=== PATIENT | female | born 1945 | race Caucasian/White ===

== ENCOUNTER 2021-08-01 18:31 | Inpatient (IN) | payer OTHER ==
[~2021-08-01] VITALS: Ht 160 cm; Wt 53.5 kg
[2021-08-01] MEDS ORDERED: ONDANSETRON HCL/PF 4 MG/2 ML VIAL ONE (18:52)
[2021-08-01] MEDS ORDERED: ONDANSETRON HCL/PF 4 MG/2 ML VIAL IVP ONE (19:00)
[2021-08-01] MEDS ORDERED: IV NS 0.9% 500 ML BAG IV ONE (19:00)
--- NOTE | 2021-08-01 20:00 | NUR ---
PATIENT BIBRA 839 FROM HOME C/O VOMITING X 2 DAYS AND 4 TIMES TODAY. PATIENT IS A/O X 3, RR EVEN AND UNLABORED, NO SOB NOTED. PATIENT TAKEN TO ER BED 06. PATIENT CONNECTED TO CARDIAC AND POX MONITOR.
[2021-08-01 20:12] LABS: COLOR,URINE YELLOW (YELLOW)
[2021-08-01 20:13] LABS: UGLUCOSE 500 MG/DL mg/dL (NEGATIVE)
[2021-08-01 20:14] LABS: BILIRUBIN,URINE NEGATIVE (NEGATIVE); LEUKOCYTE ESTERASE ,URINE LARGE (NEGATIVE); NITRITE, URINE NEGATIVE (NEGATIVE); UROBILINOGEN,URINE 0.2 EU/dL (0.2)
[2021-08-01 20:15] LABS: PROTEIN,URINE 3+ mg/dl (NEGATIVE)
[2021-08-01 20:24] LABS: BACTERIA,URINE 4+ /HPF (None Seen); RBC,URINE TOO NUMEROUS TO COUN /HPF (0-2); SQUAMOUS EPITHELIAL CELL,UR 0-2 /HPF (None Seen); WBC,URINE TOO NUMEROUS TO COUN /HPF (0-3)
[2021-08-01 20:25] LABS: YEAST,URINE Few /HPF (None Seen)
[2021-08-01 20:50] LABS: BASOPHILS % (AUTO) 0.1 % (0.0-2.0); HEMATOCRIT 31 % (33-45); HEMOGLOBIN 10.2 g/dL (11.5-14.8); LYMPHOCYTES % (AUTO) 8.1 % (20.0-44.0); MEAN CORPUSCULAR HGB CONC 33 g/dl (31.0-36.0); MEAN CORPUSCULAR VOLUME 91 fL (82-100); MONOCYTES # (AUTO) 0.7 K/uL (0.1-1.30); MONOCYTES % (AUTO) 5.8 % (2.0-12.0); NEUTROPHILS # (AUTO) 10.3 K/uL (1.8-8.9); PLATELET COUNT (AUTO) 162 K/uL (150-450); RED BLOOD CELL COUNT(AUTO) 3.47 MIL/uL (4.0-5.2); WHITE BLOOD COUNT (AUTO) 11.9 K/uL (4.3-11.0)
[2021-08-01] MEDS ORDERED: CEFEPIME 1 GM VIAL ONE (20:58)
[2021-08-01] MEDS ORDERED: CEFEPIME 1 GM in IV D5W 50 ML IV ONE (21:00)
[2021-08-01 21:08] LABS: CALCIUM, SERUM 8.7 mg/dL (8.5-10.1); CARBON DIOXIDE 24 mmol/L (21-32); CHLORIDE 98 mmol/L (98-107); CREATININE 2.2 mg/dL (0.6-1.3); GLUCOSE 295 mg/dL (74-106); POTASSIUM 4.5 mmol/L (3.5-5.1); SODIUM SERUM 130 mmol/L (136-145); UREA NITROGEN, BLOOD 39 mg/dL (7-18)
[2021-08-01 21:18] LABS: ALANINE AMINOTRANSFERASE 30 U/L (12-78); ALBUMIN 2.7 g/dL (3.4-5.0); ALKALINE PHOSPHATASE 103 U/L (46-116); ASPARTATE AMINOTRANSFERASE 18 U/L (15-37); BILIRUBIN,DIRECT 0.2 mg/dL (0.0-0.2); BILIRUBIN,TOTAL 0.4 mg/dL (0.2-1.0); TOTAL PROTEIN, SERUM 7.8 g/dL (6.4-8.2)
--- NOTE | 2021-08-01 21:22 | NUR ---
trop 75
[2021-08-01 21:29] LABS: LIPASE 230 U/L (73-393)
--- NOTE | 2021-08-02 01:14 | NUR ---
WHARF BUILDER AT PT'S BEDSIDE
[2021-08-02] MEDS ORDERED: CEFTRIAXONE 1 G in IV D5W 50 ML IV SCH (03:00)
[2021-08-02] MEDS ORDERED: MAGNESIUM HYDROXIDE 30 ML UDC PO PRN (03:00)
[2021-08-02] MEDS ORDERED: Z GUARD REMEDY 4 OZ OINT TP PRN (03:00)
[2021-08-02] MEDS ORDERED: ZOLPIDEM TARTRATE 5 MG TABLET PO PRN (03:00)
[2021-08-02] MEDS ORDERED: MAG HYDROX/AL HYDROX/SIMETH 30 ML UDC PO PRN (03:00)
[2021-08-02] MEDS ORDERED: ACETAMINOPHEN 325 MG TABLET PO PRN (03:00)
[2021-08-02 05:08] LABS: BASOPHILS % (AUTO) 0.1 % (0.0-2.0); EOSINOPHILS % (AUTO) 0.1 % (0.0-6.0); HEMATOCRIT 32 % (33-45); HEMOGLOBIN 10.7 g/dL (11.5-14.8); LYMPHOCYTES % (AUTO) 8.8 % (20.0-44.0); MEAN CORPUSCULAR HGB CONC 33 g/dl (31.0-36.0); MEAN CORPUSCULAR VOLUME 91 fL (82-100); MONOCYTES # (AUTO) 0.9 K/uL (0.1-1.30); MONOCYTES % (AUTO) 8.3 % (2.0-12.0); NEUTROPHILS % (AUTO) 82.7 % (43.0-81.0); PLATELET COUNT (AUTO) 157 K/uL (150-450); RED BLOOD CELL COUNT(AUTO) 3.53 MIL/uL (4.0-5.2); WHITE BLOOD COUNT (AUTO) 10.9 K/uL (4.3-11.0)
--- NOTE | 2021-08-02 05:31 | NUR ---
TROPONIN 73
[2021-08-02 06:11] LABS: CARBON DIOXIDE 21 mmol/L (21-32); CHLORIDE 101 mmol/L (98-107); CREATININE 2.5 mg/dL (0.6-1.3); GLUCOSE 254 mg/dL (74-106); MAGNESIUM 2.8 mg/dL (1.8-2.4); PHOSPHORUS 3.9 mg/dL (2.5-4.9); SODIUM SERUM 132 mmol/L (136-145); UREA NITROGEN, BLOOD 45 mg/dL (7-18)
--- NOTE | 2021-08-02 07:30 | NUR ---
ASSESSED PT ON BED ASLEEP EASILY AROUSABLE, NOT IN RESPIRATORY DISTRESS, V/S STABLE, KEPT RESTED AND COMFORTABLE. WILL CONTINUE TO MONITOR.
--- NOTE | 2021-08-02 08:17 | NUR ---
BED GIVEN 110
--- NOTE | 2021-08-02 08:18 | NUR ---
CALLED [facility] FOR REPORT RN AND CHARGE NURSE AT BEDSIDE. WILL CALL BACK IN 10 MINS.
--- NOTE | 2021-08-02 08:40 | NUR ---
REPORT GIVEN TO RN SOON FOR LEONARDO.
[2021-08-02] MEDS ORDERED: METO25TA6 GT (09:07)
[2021-08-02] MEDS ORDERED: LEVO100T9 GT (09:07)
[2021-08-02] MEDS ORDERED: FAMO20TA8 GT (09:07)
[2021-08-02] MEDS ORDERED: ATOR10TA GT (09:07)
[2021-08-02] MEDS ORDERED: DOXA1TAB4 GT (09:07)
[2021-08-02] MEDS ORDERED: OXYB-58 GT (09:07)
[2021-08-02 09:30] VITALS: BP 141/71
--- NOTE | 2021-08-02 09:30 | NUR ---
RN NOTE RECIEVED PATIENT FROM THE ER. PLACED IN RO0M 117-1
--- NOTE | 2021-08-02 11:45 | NUR ---
RN NOTE PATIENT VERBALIZED PAIN. PRN TYLENOL ADMINISTERED
[2021-08-02 12:00] VITALS: BP 178/92
--- NOTE | 2021-08-02 12:00 | NUR ---
RN NOTE PATIENTS B/P NOTED TO BE ELEVATED. WILL INFORM PROVIDER
--- NOTE | 2021-08-02 12:10 | NUR ---
RN NOTE RECEIVED ORDER FOR PRN HYDRALAZINE. WILL ADMINISTER. BP 178/92
[2021-08-02] MEDS ORDERED: ZOLPIDEM TARTRATE 5 MG TABLET GT PRN (12:17)
[2021-08-02] MEDS ORDERED: MAG HYDROX/AL HYDROX/SIMETH 30 ML UDC GT PRN (12:17)
[2021-08-02] MEDS ORDERED: MAGNESIUM HYDROXIDE 30 ML UDC GT PRN (12:17)
[2021-08-02] MEDS ORDERED: PHARMACY TO CHANGE PO MEDS TO GT/NG XX PRN (12:30)
[2021-08-02] MEDS ORDERED: ACETAMINOPHEN 650 MG/20.3 ML UDC PO PRN (12:30)
[2021-08-02] MEDS ORDERED: ZOSYN IVPB 2.25 G in IV D5W 50ml IV SCH (13:00)
--- NOTE | 2021-08-02 13:47 | NUR ---
RN NOTE PATIENT HAS A HX OF DYSPHAGIA. RENAL DIET CANCELLED PLACED ORDER FOR SWALLOW EVAL.
[2021-08-02] MEDS ORDERED: VANCOMYCIN 1 GM in IV D5W 250ml IV ONE (14:00)
[2021-08-02] MEDS: hydrALAZINE HCL IV 20 MG VIAL IV PRN (14:59)
[2021-08-02] MEDS: ONDANSETRON HCL/PF 4 MG/2 ML VIAL IVP PRN ×2 (15:00→21:06)
--- NOTE | 2021-08-02 15:08 | NUR ---
RN NOTE PATIENTS IV ACCES INFILTRATED MULTIPLE ATTEMPTS BY DIFFERENT NURSES. MIDLINE PENDING WILL HOLD IV MENDS UNTIL MIDLINE PLACED.
[2021-08-02 16:00] VITALS: BP 111/50
[2021-08-02] MEDS: METOPROLOL TARTRATE 25 MG TABLET GT SCH (17:00)
[2021-08-02] MEDS ORDERED: PIPERACILLIN /TAZOBACTAM 3.375 G in IV D5W 50 ML IV SCH (18:00)
--- NOTE | 2021-08-02 18:24 | NUR ---
RN NOTE PHARMACY INFORMED OF PATIENTS DELAY IN IV MEDICATION DUE TO NO IV ACCES. PER PHARMACY OKAY TO ADMINISTER MEDICATION AT A LATER TIME.
--- NOTE | 2021-08-02 19:18 | NUR ---
RN NOTE PATIENT RESTING IN BED A/O 2. DOES NOT SHOW ANY SIGNS OF SOB. DAUGHTERS ARE AT BED SIDE. PATIENT HAS IV ACCES IN RIGHT WRIST CURRENTLY RUNNING VANCO. KNIGHT CATHETER INTACT 750ML OUTPUT. PATIENT IS ON ROOM AIR WITH O2 SAT ABOVE 90%. SAFETY MEASURES IN PLACE. BED IN LOWEST POSITION 3 SIDE RAILS UP, CALL LIGHT WITHIN REACH BED LOCKED. WILL ENDORSE TO NIGHT NURSE FOR LEONARDO.
--- NOTE | 2021-08-02 19:40 | NUR ---
RN NOTE PT RECEIVED IN BED, FAMILY AT BEDSIDE. PT IS ON ROOM AIR SHOWING NO S/SX OF RESP DISTRESS/SOB. BREATHING EVEN AND UNLABORED. CURRENTLY A/OX1-2. ON HEALTH CLUB ATTENDANT SHOWING NSR. KNIGHT CATH NOTED. IV ACCESS NOTED ON RIGHT UA ML #18. PATENT AND INTACT. RIGHT UPPER CHEST WALL HD CATH NOTED. ALL SAFETY MEASURES IMPLEMENTED. HOB ELEVATED. BED LOCKED AND IN LOWEST POSITION. SIDE RIALS UP. WILL CONTINUE TO MONITOR AND ASSESS FOR ANY CHANGES DURING SHIFT.
[2021-08-02 20:00] VITALS: BP 151/79
--- NOTE | 2021-08-02 20:00 | NUR ---
RN NOTE PER FAMILY, PT IS ON G-TUBE FEEDING SPECIFICALLY BEING ON NEPRO. ALSO, PER FAMILY, SHE IS ABLE TO INTAKE VERY, VERY SMALL AMOUNTS OF PUREED FOOD.
[2021-08-02] MEDS: ZOSYN IVPB 2.25 G in IV D5W 50ml IV SCH (21:04)
[2021-08-02] MEDS: FLUCONAZOLE (100 MG) 100 MG TABLET PO SCH (21:06)
[2021-08-02] MEDS: DOXAZOSIN MESYLATE (1 MG) 1 MG TABLET GT SCH (21:07)
[2021-08-02] MEDS: ATORVASTATIN 10 MG TABLET GT SCH (21:07)
[2021-08-03] VITALS: BP 182/77
[2021-08-03] MEDS: hydrALAZINE HCL IV 20 MG VIAL IV PRN (01:07)
--- NOTE | 2021-08-03 01:08 | NUR ---
RN NOTE PT BP 182/77. WILL ADMINISTER PRN APRESOLINE AND RE-ASSESS BP IN 30 MINUTES.
--- NOTE | 2021-08-03 01:38 | NUR ---
RN NOTE PT BP NOW 143/57. WILL CONTINUE TO MONITOR FOR ANY CHANGES THROUGHOUT SHIFT.
[2021-08-03] MEDS: ZOSYN IVPB 2.25 G in IV D5W 50ml IV SCH ×4 (02:25→20:30)
[2021-08-03 04:00] VITALS: BP 145/72
[2021-08-03] MEDS ORDERED: VANCOMYCIN POST DIALYSIS 500MG IV PRN ×2 (06:00)
--- NOTE | 2021-08-03 06:56 | NUR ---
RN NOTE NO CHANGES IN PT CONDITION DURING SHIFT. PT IS ON ROOM AIR SHOWING NO S/SX OF RESP DISTRESS/SOB. BREATHING EVEN AND UNLABORED. CURRENTLY A/OX1-2. ON RADIO OFFICER SHOWING NSR. IV ACCESS NOTED ON RIGHT UA ML #18. PATENT AND INTACT. RIGHT UPPER CHEST WALL HD CATH NOTED. ALL SAFETY MEASURES IMPLEMENTED. PT KEPT CLEAN AND COMFORTABLE. ALL DUE MEDS GIVEN ORDERED. HOB ELEVATED. BED LOCKED AND IN LOWEST POSITION. SIDE RIALS UP. WILL ENDORSE TO MORNING SHIFT RN FOR LEONARDO.
[2021-08-03 07:09] LABS: BASOPHILS % (AUTO) 0.2 % (0.0-2.0); EOSINOPHILS % (AUTO) 0.1 % (0.0-6.0); HEMATOCRIT 31 % (33-45); HEMOGLOBIN 10.2 g/dL (11.5-14.8); LYMPHOCYTES # (AUTO) 0.6 K/uL (0.8-4.8); LYMPHOCYTES % (AUTO) 6.5 % (20.0-44.0); MEAN CORPUSCULAR HGB CONC 33 g/dl (31.0-36.0); MEAN CORPUSCULAR VOLUME 92 fL (82-100); MONOCYTES # (AUTO) 0.3 K/uL (0.1-1.30); MONOCYTES % (AUTO) 3.6 % (2.0-12.0); NEUTROPHILS # (AUTO) 8.5 K/uL (1.8-8.9); NEUTROPHILS % (AUTO) 89.6 % (43.0-81.0); PLATELET COUNT (AUTO) 185 K/uL (150-450); RED BLOOD CELL COUNT(AUTO) 3.41 MIL/uL (4.0-5.2); WHITE BLOOD COUNT (AUTO) 9.5 K/uL (4.3-11.0)
--- NOTE | 2021-08-03 07:30 | NUR ---
GEAR STRAIGHTENER OPENING NOTES: PT RECEIVED IN BED AWAKE, ALERT AND ORIENTED2-3. PT IS ON ROOM AIR SHOWING NO S/SX OF RESP DISTRESS/SOB. BREATHING EVEN AND UNLABORED.. ON FUNCTIONAL SUPPORT ANALYST SHOWING NSR. KNIGHT CATH NOTED. IV ACCESS NOTED ON RIGHT UA ML #18. PATENT AND INTACT. RIGHT UPPER CHEST WALL HD CATH NOTED. ALL SAFETY MEASURES IMPLEMENTED. HOB ELEVATED. BED LOCKED AND IN LOWEST POSITION. SIDE RIALS UP. WILL CONTINUE TO MONITOR AND ASSESS FOR ANY CHANGES DURING SHIFT
[2021-08-03 08:00] VITALS: BP 180/74
[2021-08-03] MEDS: ONDANSETRON HCL/PF 4 MG/2 ML VIAL IVP PRN (08:09)
[2021-08-03] MEDS: METOPROLOL TARTRATE 25 MG TABLET GT SCH ×2 (09:00→16:37)
--- NOTE | 2021-08-03 09:00 | NUR ---
rn notes: patient receiving HD, per dialysis nurse to hold lopressor
[2021-08-03] MEDS ORDERED: IOHEXOL-300 100 ML VIAL IV ONE (09:12)
[2021-08-03] MEDS ORDERED: IV NS 0.9% 250 ML IV ONE (09:12)
[2021-08-03] MEDS: FAMOTIDINE (20 MG) 20 MG TABLET GT SCH (10:05)
[2021-08-03] MEDS: FLUCONAZOLE (100 MG) 100 MG TABLET PO SCH (10:05)
[2021-08-03] MEDS: LEVOTHYROXINE SODIUM 100 MCG TABLET GT SCH (10:05)
[2021-08-03] MEDS: OXYBUTYNIN CHLORIDE ER 5 MG TAB PO SCH (10:05)
[2021-08-03 10:44] LABS: CALCIUM, SERUM 9.3 mg/dL (8.5-10.1); CARBON DIOXIDE 21 mmol/L (21-32); CHLORIDE 94 mmol/L (98-107); CREATININE 3.2 mg/dL (0.6-1.3); MAGNESIUM 2.6 mg/dL (1.8-2.4); PHOSPHORUS 5.8 mg/dL (2.5-4.9); POTASSIUM 4.8 mmol/L (3.5-5.1); SODIUM SERUM 128 mmol/L (136-145); UREA NITROGEN, BLOOD 63 mg/dL (7-18)
--- NOTE | 2021-08-03 10:51 | NUR ---
WOUND CARE CONSULT: PT NOT SEEN YET FOR SKIN ASSESSMENT DUE TO HEMODIALYSIS IN PROGRESS. WILL SEE PT PT CONDITION PERMITS. DISCUSSED SKIN PROTECTION WITH NURSING STAFF.
[2021-08-03 10:58] LABS: GLUCOSE 404 mg/dL (74-106)
--- NOTE | 2021-08-03 11:05 | NUR ---
RN NOTES: received a call from the lab reporting blood sugar 404, rechecked blood sugar myself using accucheck blood sugar 175mg/dl
--- NOTE | 2021-08-03 11:23 | NUR ---
RN NOTES ACCU CHECK ORDERED FOR [facility]. MILD SLIDING SCALE.
[2021-08-03 12:00] VITALS: BP 113/61
[2021-08-03] MEDS ORDERED: BLOOD SUGAR DIAGNOSTIC 1 EACH STRIP IN SCH (12:00)
--- NOTE | 2021-08-03 12:43 | NUR ---
rn notes: dialysis done, 2 liters was taken out, no complication notes, son at bedside, no SOB
[2021-08-03 13:24] LABS: CHOLESTEROL 143 mg/dL (<200); HDL CHOLESTEROL 48 mg/dL (40-60); LDL 64 mg/dL (0-99); TRIGLYCERIDES 133 mg/dL (30-150)
[2021-08-03] MEDS: ACETAMINOPHEN 650 MG/20.3 ML UDC GT PRN (14:29)
[2021-08-03] MEDS: NEPRO 1,000 ML BOTTLE NG PRN (14:34)
[2021-08-03] MEDS ORDERED: EPOETIN ALFA-EPBX 10,000 UNIT/ML VIAL IV ONE (15:00)
--- NOTE | 2021-08-03 15:41 | NUR ---
SUPERVISOR CD AREA NOTES: dialysis completed without any complications,2 liters out
[2021-08-03 16:00] VITALS: BP 166/60
[2021-08-03] MEDS ORDERED: INSULIN REGULAR, HUMAN 100 UNIT/ML 10 ML VIAL SQ PRN (17:00)
[2021-08-03] MEDS ORDERED: DEXTROSE 50%-WATER 50 ML DISP.SYRIN IV PRN (17:30)
[2021-08-03] MEDS: BLOOD SUGAR DIAGNOSTIC 1 EACH STRIP IN SCH ×2 (17:54→22:06)
[2021-08-03] MEDS: INSULIN REGULAR, HUMAN 100 UNIT/ML 3 ML VIAL SQ PRN ×2 (18:40→22:07)
--- NOTE | 2021-08-03 19:10 | NUR ---
round corner cutter operator closing notes: PATIENT IN BED AWAKE, ALERT ORIENTED X2-3. RESPIRATION IS EBVEN AND UNLABORED,NO sob NOTED, ON ROOM AIR, TOLERATING gtf WELL, 0 RESIDUAL,KEPT hob ELEVATED. ON YARN WRAPPER SHOWING st. IV ACCESS NOTED ON RIGHT UA ML #18. PATENT AND INTACT. RIGHT UPPER CHEST WALL HD CATH NOTED. ALL SAFETY MEASURES IMPLEMENTED. PT KEPT CLEAN AND COMFORTABLE. ALL DUE MEDS GIVEN ORDERED. HOB ELEVATED. BED LOCKED AND IN LOWEST POSITION. SIDE RIALS UP. WILL ENDORSE TO DISABILITY SERVICES COORDINATOR RN FOR LEONARDO.
--- NOTE | 2021-08-03 19:35 | NUR ---
RN NOTE PT RECEIVED IN BED, FAMILY AT BEDSIDE. PT IS ON ROOM AIR SHOWING NO S/SX OF RESP DISTRESS/SOB. BREATHING EVEN AND UNLABORED. CURRENTLY A/OX2. ON REMOTE COMPUTER TERMINAL OPERATOR SHOWING NSR. KNIGHT CATH NOTED. IV ACCESS NOTED ON RIGHT UA ML #18. PATENT AND INTACT. RIGHT UPPER CHEST WALL HD CATH NOTED. ALL SAFETY MEASURES IMPLEMENTED. HOB ELEVATED. BED LOCKED AND IN LOWEST POSITION. SIDE RIALS UP. WILL CONTINUE TO MONITOR AND ASSESS FOR ANY CHANGES DURING SHIFT.
[2021-08-03 20:00] VITALS: BP 161/71
[2021-08-03] MEDS: MUPIROCIN OINT 2% 22 GM TUBE NS SCH (20:30)
[2021-08-03] MEDS: ATORVASTATIN 10 MG TABLET GT SCH (22:05)
[2021-08-03] MEDS: DOXAZOSIN MESYLATE (1 MG) 1 MG TABLET GT SCH (22:06)
[2021-08-04] VITALS: BP 147/62
[2021-08-04] MEDS: ZOSYN IVPB 2.25 G in IV D5W 50ml IV SCH ×4 (02:58→20:58)
[2021-08-04 04:00] VITALS: BP 132/61
--- NOTE | 2021-08-04 07:01 | NUR ---
RN NOTE NO CHANGES IN PT CONDITION DURING SHIFT. PT IS ON ROOM AIR SHOWING NO S/SX OF RESP DISTRESS/SOB. BREATHING EVEN AND UNLABORED. IV ACCESS NOTED ON RIGHT UA ML #18. PATENT AND INTACT. RIGHT UPPER CHEST WALL HD CATH NOTED. ALL SAFETY MEASURES IMPLEMENTED. PT KEPT CLEAN AND COMFORTABLE. ALL DUE MEDS GIVEN ORDERED. HOB ELEVATED. BED LOCKED AND IN LOWEST POSITION. SIDE RIALS UP. WILL ENDORSE TO MORNING SHIFT RN FOR LEONARDO.
--- NOTE | 2021-08-04 07:09 | NUR ---
RN OPENING NOTE PT IS RESTING IN BED A/O X2-3. PT IS ON ROOM AIR SHOWING NO S/SX OF RESP DISTRESS/SOB. BREATHING EVEN AND UNLABORED. IV ACCESS NOTED ON RIGHT UA ML #18. PATENT AND INTACT. RIGHT UPPER CHEST WALL HD CATH NOTED. ALL SAFETY MEASURES IMPLEMENTED, BED IN LOWEST LOCKED POSITION, SR UP X2, CALL LIGHT WITHIN REACH. WILL CONTINUE TO MONITOR THROUGHOUT SHIFT.
[2021-08-04] MEDS: BLOOD SUGAR DIAGNOSTIC 1 EACH STRIP IN SCH ×4 (07:28→22:07)
[2021-08-04 07:38] LABS: BASOPHILS % (AUTO) 0.1 % (0.0-2.0); EOSINOPHILS % (AUTO) 0.2 % (0.0-6.0); HEMATOCRIT 31 % (33-45); HEMOGLOBIN 10.3 g/dL (11.5-14.8); LYMPHOCYTES % (AUTO) 13.1 % (20.0-44.0); MEAN CORPUSCULAR HGB CONC 33 g/dl (31.0-36.0); MEAN CORPUSCULAR VOLUME 91 fL (82-100); MONOCYTES # (AUTO) 0.6 K/uL (0.1-1.30); MONOCYTES % (AUTO) 7.4 % (2.0-12.0); NEUTROPHILS # (AUTO) 6.3 K/uL (1.8-8.9); NEUTROPHILS % (AUTO) 79.2 % (43.0-81.0); PLATELET COUNT (AUTO) 221 K/uL (150-450); RED BLOOD CELL COUNT(AUTO) 3.45 MIL/uL (4.0-5.2); WHITE BLOOD COUNT (AUTO) 7.9 K/uL (4.3-11.0)
[2021-08-04 07:42] LABS: CALCIUM, SERUM 9.4 mg/dL (8.5-10.1); CARBON DIOXIDE 23 mmol/L (21-32); CHLORIDE 96 mmol/L (98-107); CREATININE 2.6 mg/dL (0.6-1.3); MAGNESIUM 2.5 mg/dL (1.8-2.4); PHOSPHORUS 4.1 mg/dL (2.5-4.9); POTASSIUM 3.5 mmol/L (3.5-5.1); SODIUM SERUM 132 mmol/L (136-145); UREA NITROGEN, BLOOD 50 mg/dL (7-18)
[2021-08-04 08:00] VITALS: BP 185/72
[2021-08-04 08:06] LABS: GLUCOSE 370 mg/dL (74-106)
[2021-08-04] MEDS: METOPROLOL TARTRATE 25 MG TABLET GT SCH ×2 (08:18→17:09)
[2021-08-04] MEDS: MUPIROCIN OINT 2% 22 GM TUBE NS SCH ×2 (08:19→22:00)
[2021-08-04] MEDS: FLUCONAZOLE (100 MG) 100 MG TABLET PO SCH (08:19)
[2021-08-04] MEDS: LEVOTHYROXINE SODIUM 100 MCG TABLET GT SCH (08:19)
[2021-08-04] MEDS: OXYBUTYNIN CHLORIDE ER 5 MG TAB PO SCH (08:19)
[2021-08-04] MEDS: FAMOTIDINE (20 MG) 20 MG TABLET GT SCH (08:19)
--- NOTE | 2021-08-04 09:08 | NUR ---
WOUND CARE CONSULT: PT PRESENTS WITH RASH AND SKIN DISCOLORATION TO BUTTOCKS AND DEEP TISSUE INJURY TO SACRUM WHICH IS IN EVOLUTION, PRESENT ON ADMISSION. G TUBE AND KNIGHT CATH NOTED. RECOMMENDATIONS MADE FOR SKIN PROTECTION AND WOUND CARE. DISCUSSED WITH NURSING STAFF. PT IS ON [facility] BED. IN AGREEMENT WITH PLAN OF CARE. Addendum: 08/04/21 at 0909 by RAMEZ LINDO WNDNU Amended: Links added.
[2021-08-04] MEDS: INSULIN REGULAR, HUMAN 100 UNIT/ML 3 ML VIAL SQ PRN ×2 (09:30→11:17)
[2021-08-04] MEDS: ACETAMINOPHEN 650 MG/20.3 ML UDC GT PRN (11:07)
[2021-08-04] MEDS: hydrALAZINE HCL IV 20 MG VIAL IV PRN (11:57)
[2021-08-04 12:00] VITALS: BP 196/68
[2021-08-04 16:00] VITALS: BP 143/76
--- NOTE | 2021-08-04 16:00 | NUR ---
RN NOTES BLOOD CULTURE COLLECTED BY POLICE CHIEF AT APPROX 1600.
[2021-08-04] MEDS: CLOTRIMAZOLE 1% 15 GM TUBE TP SCH (17:09)
[2021-08-04] MEDS: *INSULIN REGULAR(HUMULIN R)HUM 100 UNIT/ML VIAL SQ PRN ×2 (17:31→22:12)
--- NOTE | 2021-08-04 18:31 | NUR ---
RN CLOSING NOTES PATIENT IN BED AWAKE, ALERT ORIENTED X2-3. RESPIRATION IS EVEN AND UNLABORED, NO SOB NOTED, ON ROOM AIR, TOLERATING GTF WELL, 0 RESIDUAL, KEPT HOB ELEVATED. ON ELECTRONIC COMMUNICATIONS TECHNICIAN SHOWING ST. IV ACCESS NOTED ON RIGHT UA ML #18. PATENT AND INTACT. RIGHT UPPER CHEST WALL HD CATH NOTED. ALL SAFETY MEASURES IMPLEMENTED. PT KEPT CLEAN AND COMFORTABLE. ALL DUE MEDS GIVEN ORDERED. HOB ELEVATED. BED LOCKED AND IN LOWEST POSITION. SIDE RIALS UP. WILL ENDORSE TO WEB WORKER NURSE FOR LEONARDO.
--- NOTE | 2021-08-04 19:40 | NUR ---
RN NOTE PT RECEIVED IN BED, FAMILY AT BEDSIDE. PT IS ON ROOM AIR SHOWING NO S/SX OF RESP DISTRESS/SOB. BREATHING EVEN AND UNLABORED. CURRENTLY A/OX2. ON LIGHT OIL OPERATOR SHOWING NSR. KNIGHT CATH NOTED. IV ACCESS NOTED ON RIGHT UA ML #18. PATENT AND INTACT. RIGHT UPPER CHEST WALL HD CATH NOTED. ALL SAFETY MEASURES IMPLEMENTED. HOB ELEVATED. BED LOCKED AND IN LOWEST POSITION. SIDE RAILS UP. CALL LIGHT WITHIN REACH. WILL CONTINUE TO MONITOR AND ASSESS FOR ANY CHANGES DURING SHIFT.
[2021-08-04 20:00] VITALS: BP 155/67
[2021-08-04] MEDS ORDERED: INSULIN GLARGINE, 100 UNIT/ML CARTRIDGE SQ SCH (22:00)
[2021-08-04] MEDS: ATORVASTATIN 10 MG TABLET GT SCH (22:03)
[2021-08-04] MEDS: DOXAZOSIN MESYLATE (1 MG) 1 MG TABLET GT SCH (22:03)
[2021-08-04] MEDS: NEPRO 1,000 ML BOTTLE NG PRN (22:32)
[2021-08-05] VITALS: BP 141/70
[2021-08-05] MEDS: ZOSYN IVPB 2.25 G in IV D5W 50ml IV SCH ×4 (03:01→20:10)
[2021-08-05 04:00] VITALS: BP 146/68
[2021-08-05 06:47] LABS: BASOPHILS % (AUTO) 0.1 % (0.0-2.0); EOSINOPHILS % (AUTO) 0.6 % (0.0-6.0); HEMATOCRIT 34 % (33-45); HEMOGLOBIN 11.2 g/dL (11.5-14.8); LYMPHOCYTES # (AUTO) 1.4 K/uL (0.8-4.8); LYMPHOCYTES % (AUTO) 14.2 % (20.0-44.0); MEAN CORPUSCULAR HGB CONC 33 g/dl (31.0-36.0); MEAN CORPUSCULAR VOLUME 91 fL (82-100); MONOCYTES # (AUTO) 0.8 K/uL (0.1-1.30); MONOCYTES % (AUTO) 8.3 % (2.0-12.0); NEUTROPHILS # (AUTO) 7.8 K/uL (1.8-8.9); NEUTROPHILS % (AUTO) 76.8 % (43.0-81.0); PLATELET COUNT (AUTO) 246 K/uL (150-450); RED BLOOD CELL COUNT(AUTO) 3.77 MIL/uL (4.0-5.2); WHITE BLOOD COUNT (AUTO) 10.1 K/uL (4.3-11.0)
--- NOTE | 2021-08-05 07:11 | NUR ---
RN OPENING NOTE PT IS RESTING IN BED A/O X2. PT IS ON ROOM AIR SHOWING NO S/SX OF RESP DISTRESS/SOB. BREATHING EVEN AND UNLABORED. IV ACCESS NOTED ON RIGHT UA ML #18. PATENT AND INTACT. RIGHT UPPER CHEST WALL HD CATH NOTED. ALL SAFETY MEASURES IMPLEMENTED, BED IN LOWEST LOCKED POSITION, SR UP X2, CALL LIGHT WITHIN REACH. WILL CONTINUE TO MONITOR THROUGHOUT SHIFT.
[2021-08-05] MEDS: BLOOD SUGAR DIAGNOSTIC 1 EACH STRIP IN SCH ×4 (07:16→21:51)
[2021-08-05] MEDS: INSULIN REGULAR, HUMAN 100 UNIT/ML 3 ML VIAL SQ PRN ×3 (07:32→17:44)
[2021-08-05] MEDS: ONDANSETRON HCL/PF 4 MG/2 ML VIAL IVP PRN (07:34)
[2021-08-05 08:00] VITALS: BP 149/85
[2021-08-05] MEDS: METOPROLOL TARTRATE 25 MG TABLET GT SCH ×2 (08:06→16:58)
[2021-08-05] MEDS: CLOTRIMAZOLE 1% 15 GM TUBE TP SCH ×2 (08:07→16:56)
[2021-08-05] MEDS: FLUCONAZOLE (100 MG) 100 MG TABLET PO SCH (08:07)
[2021-08-05] MEDS: MUPIROCIN OINT 2% 22 GM TUBE NS SCH ×2 (08:07→21:43)
[2021-08-05] MEDS: LEVOTHYROXINE SODIUM 100 MCG TABLET GT SCH (08:07)
[2021-08-05] MEDS: OXYBUTYNIN CHLORIDE ER 5 MG TAB PO SCH (08:07)
[2021-08-05] MEDS: FAMOTIDINE (20 MG) 20 MG TABLET GT SCH (08:07)
[2021-08-05 08:19] LABS: ALANINE AMINOTRANSFERASE 34 U/L (12-78); ALBUMIN 2.5 g/dL (3.4-5.0); ALKALINE PHOSPHATASE 143 U/L (46-116); ASPARTATE AMINOTRANSFERASE 25 U/L (15-37); BILIRUBIN,DIRECT 0.1 mg/dL (0.0-0.2); BILIRUBIN,TOTAL 0.3 mg/dL (0.2-1.0); CARBON DIOXIDE 23 mmol/L (21-32); CHLORIDE 95 mmol/L (98-107); CREATININE 3.7 mg/dL (0.6-1.3); GLUCOSE 339 mg/dL (74-106); POTASSIUM 3.5 mmol/L (3.5-5.1); SODIUM SERUM 134 mmol/L (136-145); TOTAL PROTEIN, SERUM 7.6 g/dL (6.4-8.2); UREA NITROGEN, BLOOD 79 mg/dL (7-18)
[2021-08-05 08:31] LABS: IRON, SERUM 43 ug/dl (50-175); TOTAL IRON BINDING CAPACITY 157 ug/dl (250-450)
[2021-08-05 12:00] VITALS: BP 161/84
[2021-08-05] MEDS ORDERED: ALBUMIN 25% 25 GM in PREMIX 1 EA IV PRN (13:30)
[2021-08-05 16:00] VITALS: BP 132/67
[2021-08-05] MEDS ORDERED: VANCOMYCIN 1 GM in IV D5W 250 ML IV ONE (18:00)
--- NOTE | 2021-08-05 18:38 | NUR ---
RN CLOSING NOTES PATIENT IN BED RESTING WITH SISTER BY BEDSIDE, A/O X2-3. RESPIRATION IS EVEN AND UNLABORED, NO SOB NOTED, ON ROOM AIR, TOLERATING GTF WELL, 0 RESIDUAL, KEPT HOB ELEVATED. ON CORPORATE DIRECTOR OF HUMAN RESOURCES SHOWING ST. IV ACCESS NOTED ON RIGHT UA ML #18. PATENT AND INTACT. RIGHT UPPER CHEST WALL HD CATH NOTED. HD COMPLETED TODAY WITH 2L REMOVED. ALL SAFETY MEASURES IMPLEMENTED. PT KEPT CLEAN AND COMFORTABLE. ALL DUE MEDS GIVEN ORDERED. HOB ELEVATED. BED LOCKED AND IN LOWEST POSITION. SIDE RIALS UP. WILL ENDORSE TO MANUFACTURING WORKER NURSE FOR LEONARDO.
--- NOTE | 2021-08-05 19:45 | NUR ---
RN OPENING NOTES RECEIVED PATIENT IN BED, AWAKE, A/O X2-3 AND VERBALLY RESPONSIVE. AMHARIC SPEAKING. ON ROOM AIR AND PT TOLERATED WELL. BREATHING EVEN AND UNLABORED. NO SOB NOTED. IV ACCESS ON SHAMAR ML #18 AND INTACT AND PATENT. RIGHT UPPER CHEST WALL HD CATH INTACT AND PATENT. NO BLEEDING NOTED. NO C/O PAIN OR DISCOMFORT. NO ACUTE DISTRESS. GTUBE NEPHRO AT 45CC/HR. PT ALSO ON PUREED DIET. KNIGHT CATH INTACT WITH YELLOWISH/CLEAR URINE. SISTER AT BEDSIDE. ALL SAFETY MEASURES IN PLACE. HOB ELEVATED. BED IN LOWEST POSITION AND LOCKED. SIDE RIALS UP X2. PLACE CALL LIGHT WITH IN REACH. WILL CONTINUE TO MONITOR
[2021-08-05 20:00] VITALS: BP 123/68
[2021-08-05] MEDS: ATORVASTATIN 10 MG TABLET GT SCH (21:43)
[2021-08-05] MEDS: DOXAZOSIN MESYLATE (1 MG) 1 MG TABLET GT SCH (21:45)
[2021-08-05] MEDS: INSULIN GLARGINE, 100 UNIT/ML CARTRIDGE SQ SCH (21:59)
[2021-08-05] MEDS: *INSULIN REGULAR(HUMULIN R)HUM 100 UNIT/ML VIAL SQ PRN (22:01)
--- NOTE | 2021-08-05 22:06 | NUR ---
RN NOTES: PT'S BLOOD SUGAR 190, 3 UNITS OF REGULAR INSULIN AND LANTUS 9 UNITS GIVEN . NO S/S OF HYPER/HYPOGLYCEMIA. WILL CONTINUE TO MONITOR
[2021-08-06] VITALS: BP 112/60
[2021-08-06] MEDS: ZOSYN IVPB 2.25 G in IV D5W 50ml IV SCH ×3 (01:07→13:02)
[2021-08-06 04:00] VITALS: BP 100/55
--- NOTE | 2021-08-06 06:35 | NUR ---
RN CLOSING NOTES PATIENT IN BED, AWAKE, A/O X2-3 AND VERBALLY RESPONSIVE. MARTINIQUAIS SPEAKING. ON ROOM AIR, O2 SAT 97% AND PT TOLERATED WELL. BREATHING EVEN AND UNLABORED. NO SOB NOTED. IV ACCESS ON SHAMAR ML #18 AND INTACT AND PATENT. RIGHT UPPER CHEST WALL HD CATH INTACT AND PATENT. NO BLEEDING NOTED. NO C/O PAIN OR DISCOMFORT. NO ACUTE DISTRESS. GTUBE FEEDING NEPHRO AT 45CC/HR. PT ALSO ON PUREED DIET. ALL DUE MEDS GIVEN ORDERED. KNIGHT CATH INTACT WITH YELLOWISH/CLEAR URINE. ALL SAFETY MEASURES IN PLACE. HOB ELEVATED. BED IN LOWEST POSITION AND LOCKED. SIDE RIALS UP X2. PLACE CALL LIGHT WITH IN REACH. WILL ENDORSE TO MORNING SHIFT NURSE.
[2021-08-06 07:21] LABS: CALCIUM, SERUM 9.6 mg/dL (8.5-10.1); CARBON DIOXIDE 24 mmol/L (21-32); CHLORIDE 94 mmol/L (98-107); CREATININE 3.3 mg/dL (0.6-1.3); GLUCOSE 212 mg/dL (74-106); MAGNESIUM 2.1 mg/dL (1.8-2.4); PHOSPHORUS 3.7 mg/dL (2.5-4.9); POTASSIUM 3.3 mmol/L (3.5-5.1); SODIUM SERUM 131 mmol/L (136-145); UREA NITROGEN, BLOOD 45 mg/dL (7-18)
[2021-08-06 07:29] LABS: BASOPHILS % (AUTO) 0.3 % (0.0-2.0); EOSINOPHILS % (AUTO) 1.6 % (0.0-6.0); HEMATOCRIT 33 % (33-45); HEMOGLOBIN 10.7 g/dL (11.5-14.8); LYMPHOCYTES # (AUTO) 2.2 K/uL (0.8-4.8); MEAN CORPUSCULAR HGB CONC 32 g/dl (31.0-36.0); MEAN CORPUSCULAR VOLUME 91 fL (82-100); MONOCYTES # (AUTO) 0.9 K/uL (0.1-1.30); MONOCYTES % (AUTO) 10.4 % (2.0-12.0); NEUTROPHILS % (AUTO) 60.7 % (43.0-81.0); PLATELET COUNT (AUTO) 211 K/uL (150-450); RED BLOOD CELL COUNT(AUTO) 3.63 MIL/uL (4.0-5.2); WHITE BLOOD COUNT (AUTO) 8.2 K/uL (4.3-11.0)
[2021-08-06] MEDS: BLOOD SUGAR DIAGNOSTIC 1 EACH STRIP IN SCH ×4 (07:57→22:10)
[2021-08-06 08:00] VITALS: BP 104/42
[2021-08-06] MEDS: *INSULIN REGULAR(HUMULIN R)HUM 100 UNIT/ML VIAL SQ PRN ×3 (08:06→22:13)
[2021-08-06] MEDS: METOPROLOL TARTRATE 25 MG TABLET GT SCH ×2 (09:00→16:20)
--- NOTE | 2021-08-06 09:30 | NUR ---
irrigation teacher notes: received a call from the lab patient blood culture is positive <RSA, Bowles DNP is at the floor made aware
[2021-08-06] MEDS: OXYBUTYNIN CHLORIDE ER 5 MG TAB PO SCH (09:43)
[2021-08-06] MEDS: FLUCONAZOLE (100 MG) 100 MG TABLET PO SCH (09:43)
[2021-08-06] MEDS: LEVOTHYROXINE SODIUM 100 MCG TABLET GT SCH (09:43)
[2021-08-06] MEDS: FAMOTIDINE (20 MG) 20 MG TABLET GT SCH (09:43)
[2021-08-06] MEDS: MUPIROCIN OINT 2% 22 GM TUBE NS SCH ×2 (09:43→22:23)
[2021-08-06] MEDS: CLOTRIMAZOLE 1% 15 GM TUBE TP SCH ×2 (09:44→16:20)
[2021-08-06 12:00] VITALS: BP 115/61
[2021-08-06] MEDS: LEVOFLOXACIN (250MG) 250 MG TABLET PO SCH (14:21)
[2021-08-06] MEDS ORDERED: LIDOCAINE 1%-EPI 1:100,000 20 ML VIAL TP ONE (15:00)
[2021-08-06] MEDS ORDERED: LIDOCAINE 2%-EPI 1:100,000 30 ML VIAL TP ONE (15:00)
--- NOTE | 2021-08-06 15:15 | NUR ---
roller coaster designer notes: called daughter Anastasia Singleton to obtain consent for permacath removal , daughter denies thinking her mother will suffer , explained risk and benefits she said she has to think about it, made aware that the mother is positive MRSA blood , still doesnot want to consent
--- NOTE | 2021-08-06 15:45 | NUR ---
flatbed press operator notes: AYLIN Bowles called daughter Anastasia and Eber Calderon RN translate in macedonian ti her and explained the importance of CVC removal daughter agreed and consented to remove right chest wall dialysis cath and consented femoral dialysis cath insertion
[2021-08-06 16:00] VITALS: BP 118/63
--- NOTE | 2021-08-06 16:05 | NUR ---
telecasting engineer notes: DR Thomas came and removed perma cath, procedure well tolerated,no bleeding noted
[2021-08-06] MEDS: NEPRO 1,000 ML BOTTLE PEG SCH (17:14)
--- NOTE | 2021-08-06 19:10 | NUR ---
RESEARCH CENTER DIRECTOR CLOSING NOTES: PATIENT IN BED, AWAKE, A/O X2-3 AND VERBALLY RESPONSIVE. BENGALI SPEAKING. ON ROOM AIR, O2 SAT 97% AND PT TOLERATED WELL. BREATHING EVEN AND UNLABORED. NO SOB NOTED. IV ACCESS ON SHAMAR ML #18 AND INTACT AND PATENT. RIGHT CHEST WALL NO BLEEDING NOTED POST CATH REMOVAL. NO C/O PAIN OR DISCOMFORT. NO ACUTE DISTRESS. GTUBE FEEDING NEPHRO AT 65CC/HR X 12 HOURS ONLY STARTED AR 1700. PT ALSO ON PUREED DIET. ALL DUE MEDS GIVEN ORDERED. KNIGHT CATH INTACT WITH YELLOWISH/CLEAR URINE. ALL SAFETY MEASURES IN PLACE. HOB ELEVATED. BED IN LOWEST POSITION AND LOCKED. SIDE RIALS UP X2. PLACE CALL LIGHT WITH IN REACH. WILL ENDORSE TO HEADLIGHT ASSEMBLER NURSE.
--- NOTE | 2021-08-06 19:50 | NUR ---
RN NOTE PATIENT ALERT AND RESPONSIVE, FAMILY AT BEDSIDE. ON ROOM AIR, NO S/S OF RESPIRATORY DISTRESS. DENIES ANY PAIN. KNIGHT CATH IN PLACE, DRAINING VIA GRAVITY. ON G-TUBE NEPRO @ 65ML/HR, NO RESIDUAL NOTED. IV ACCESS ON SHAMAR MIDLINE PATENT AND INTACT. ON , RIGHT CHEST WALL HD CATH REMOVED TODAY. NO BLEEDING NOTED. FOR FEMORAL CATH INSERTION TOMORROW. BED LOCKED AND IN LOWEST POSITION. CALL LIGHT WITHIN REACH. ALL NEEDS ANTICIPATED.
[2021-08-06 20:00] VITALS: BP 110/49
[2021-08-06] MEDS: DOXAZOSIN MESYLATE (1 MG) 1 MG TABLET GT SCH (22:10)
[2021-08-06] MEDS: ATORVASTATIN 10 MG TABLET GT SCH (22:10)
[2021-08-06] MEDS: INSULIN GLARGINE, 100 UNIT/ML CARTRIDGE SQ SCH (22:14)
[2021-08-07] VITALS (7 sets, daily range): BP systolic 111–147; BP diastolic 52–65
[2021-08-07 06:50] LABS: BASOPHILS % (AUTO) 0.3 % (0.0-2.0); EOSINOPHILS % (AUTO) 1.3 % (0.0-6.0); HEMATOCRIT 33 % (33-45); HEMOGLOBIN 10.8 g/dL (11.5-14.8); LYMPHOCYTES # (AUTO) 2.1 K/uL (0.8-4.8); LYMPHOCYTES % (AUTO) 25.7 % (20.0-44.0); MEAN CORPUSCULAR HGB CONC 33 g/dl (31.0-36.0); MEAN CORPUSCULAR VOLUME 91 fL (82-100); MONOCYTES # (AUTO) 0.8 K/uL (0.1-1.30); MONOCYTES % (AUTO) 10.4 % (2.0-12.0); NEUTROPHILS % (AUTO) 62.3 % (43.0-81.0); PLATELET COUNT (AUTO) 237 K/uL (150-450); RED BLOOD CELL COUNT(AUTO) 3.65 MIL/uL (4.0-5.2); WHITE BLOOD COUNT (AUTO) 8.1 K/uL (4.3-11.0)
[2021-08-07 07:08] LABS: CALCIUM, SERUM 9.3 mg/dL (8.5-10.1); CARBON DIOXIDE 20 mmol/L (21-32); CHLORIDE 92 mmol/L (98-107); CREATININE 4.6 mg/dL (0.6-1.3); GLUCOSE 213 mg/dL (74-106); MAGNESIUM 2.4 mg/dL (1.8-2.4); PHOSPHORUS 4.8 mg/dL (2.5-4.9); POTASSIUM 3.4 mmol/L (3.5-5.1); SODIUM SERUM 128 mmol/L (136-145); UREA NITROGEN, BLOOD 72 mg/dL (7-18); VANCOMYCIN,RANDOM 28 ug/ml (18-26)
--- NOTE | 2021-08-07 07:42 | NUR ---
RN NOTE PATIENT RESTING IN BED. ON ROOM AIR, NO SOB NOTED. KNIGHT CATH OUTPUT 200CC. G-TUBE IN PLACE. FEEDING OFF AT THIS TIME. IV ACCESS ON SHAMAR MIDLINE PATENT AND INTACT. TURNED AND REPOSITIONED, KEPT CLEAN AND DRY. ALL DUE MEDS GIVEN ORDERED. BED LOCKED AND IN LOWEST POSITION. CALL LIGHT WITHIN REACH. ENDORSED TO AM SHIFT.
--- NOTE | 2021-08-07 08:04 | NUR ---
TELE/RN OPENING NOTE RECEIVED PATIENT IN BED. A/OX2-3. STABLE ON ROOM AIR, NO SOB NOTED. KNIGHT CATH IN PLACED. G-TUBE IN PLACE. FEEDING OFF AT THIS TIME. IV ACCESS ON SHAMAR MIDLINE PATENT AND INTACT ON SALINE LOCK. SAFETY MEASURES IN PLACED: BED LOCKED AND IN LOWEST POSITION, SIDE RAILS UPX2, CALL LIGHT WITHIN REACH. WILL CONTINUE WITH THE PLAN OF CARE.
[2021-08-07] MEDS: BLOOD SUGAR DIAGNOSTIC 1 EACH STRIP IN SCH ×4 (08:51→21:49)
[2021-08-07] MEDS: MUPIROCIN OINT 2% 22 GM TUBE NS SCH ×2 (08:54→21:41)
[2021-08-07] MEDS: METOPROLOL TARTRATE 25 MG TABLET GT SCH ×2 (08:54→16:54)
[2021-08-07] MEDS: LEVOTHYROXINE SODIUM 100 MCG TABLET GT SCH (08:54)
[2021-08-07] MEDS: FAMOTIDINE (20 MG) 20 MG TABLET GT SCH (08:54)
[2021-08-07] MEDS: OXYBUTYNIN CHLORIDE ER 5 MG TAB PO SCH (08:54)
[2021-08-07] MEDS: CLOTRIMAZOLE 1% 15 GM TUBE TP SCH ×2 (08:54→16:54)
[2021-08-07] MEDS: INSULIN REGULAR, HUMAN 100 UNIT/ML 3 ML VIAL SQ PRN (09:08)
[2021-08-07] MEDS: NEPRO 1,000 ML BOTTLE PEG SCH (18:10)
--- NOTE | 2021-08-07 19:26 | NUR ---
TELE/RN CLOSING NOTE PATIENT IN BED. A/OX2-3. STABLE ON ROOM AIR, NO SOB NOTED. KNIGHT CATH IN PLACED. G-TUBE IN PLACE. FEEDING STARTED AT 18:00. IV ACCESS ON SHAMAR MIDLINE PATENT AND INTACT ON SALINE LOCK. ALL NEEDS MET. KEPT PATIENT COMFORTABLE. SAFETY MEASURES IN PLACED: BED LOCKED AND IN LOWEST POSITION, SIDE RAILS UPX2, CALL LIGHT WITHIN REACH. WILL ENDORSE TO THE NEXT SHIFT FOR LEONARDO.
[2021-08-07] MEDS: ATORVASTATIN 10 MG TABLET GT SCH (21:38)
[2021-08-07] MEDS: DOXAZOSIN MESYLATE (1 MG) 1 MG TABLET GT SCH (21:39)
[2021-08-07] MEDS: INSULIN GLARGINE, 100 UNIT/ML CARTRIDGE SQ SCH (21:51)
[2021-08-07] MEDS: *INSULIN REGULAR(HUMULIN R)HUM 100 UNIT/ML VIAL SQ PRN (21:54)
[2021-08-08] VITALS: BP 139/54
[2021-08-08 04:00] VITALS: BP 137/63
--- NOTE | 2021-08-08 07:20 | NUR ---
BLADDER BLOWER OPENING NOTES: RECEIVED PATIENT IN BED, AWAKE, A/O X2-3 AND VERBALLY RESPONSIVE. ANDORRAN SPEAKING. ON ROOM AIR O2 SATURATION 96%. BREATHING EVEN AND UNLABORED. NO SOB NOTED. IV ACCESS ON SHAMAR ML #18 AND INTACT AND PATENT. NO C/O PAIN OR DISCOMFORT. NO ACUTE DISTRESS. GTUBE NEPHRO AT 45CC/HRTARTED 6PM TURNED OFF AT 6AM PT ALSO ON PUREED DIET. KNIGHT CATH INTACT WITH YELLOWISH/CLEAR URINE. ALL SAFETY MEASURES IN PLACE. HOB ELEVATED. BED IN LOWEST POSITION AND LOCKED. SIDE RIALS UP X2. PLACE CALL LIGHT WITH IN REACH. WILL CONTINUE TO MONITOR
--- NOTE | 2021-08-08 07:29 | NUR ---
TELE/RN CLOSING NOTE PATIENT IN BED. A/OX2-3. STABLE ON ROOM AIR, NO SOB NOTED. KNIGHT CATH IN PLACED. G-TUBE IN PLACE.IV ACCESS ON SHAMAR MIDLINE PATENT AND INTACT ON SALINE LOCK. ALL NEEDS MET. KEPT PATIENT COMFORTABLE. SAFETY MEASURES IN PLACED: BED LOCKED AND IN LOWEST POSITION, SIDE RAILS UPX2, CALL LIGHT WITHIN REACH. WILL ENDORSE TO THE NEXT SHIFT FOR LEONARDO.
[2021-08-08] MEDS: BLOOD SUGAR DIAGNOSTIC 1 EACH STRIP IN SCH ×4 (07:41→22:03)
[2021-08-08] MEDS: *INSULIN REGULAR(HUMULIN R)HUM 100 UNIT/ML VIAL SQ PRN ×3 (07:44→22:10)
[2021-08-08 08:00] VITALS: BP 149/56
[2021-08-08] MEDS: LEVOTHYROXINE SODIUM 100 MCG TABLET GT SCH (08:02)
[2021-08-08] MEDS: METOPROLOL TARTRATE 25 MG TABLET GT SCH ×2 (08:02→16:42)
[2021-08-08] MEDS: OXYBUTYNIN CHLORIDE ER 5 MG TAB PO SCH (08:02)
[2021-08-08] MEDS: MUPIROCIN OINT 2% 22 GM TUBE NS SCH ×2 (08:03→21:05)
[2021-08-08] MEDS: FAMOTIDINE (20 MG) 20 MG TABLET GT SCH (08:03)
[2021-08-08] MEDS: CLOTRIMAZOLE 1% 15 GM TUBE TP SCH ×2 (08:03→16:42)
[2021-08-08 08:04] LABS: BASOPHILS % (AUTO) 0.2 % (0.0-2.0); EOSINOPHILS % (AUTO) 1.1 % (0.0-6.0); HEMATOCRIT 32 % (33-45); HEMOGLOBIN 10.3 g/dL (11.5-14.8); LYMPHOCYTES # (AUTO) 1.6 K/uL (0.8-4.8); LYMPHOCYTES % (AUTO) 22.2 % (20.0-44.0); MEAN CORPUSCULAR HGB CONC 33 g/dl (31.0-36.0); MEAN CORPUSCULAR VOLUME 91 fL (82-100); MONOCYTES # (AUTO) 0.6 K/uL (0.1-1.30); MONOCYTES % (AUTO) 8.8 % (2.0-12.0); NEUTROPHILS % (AUTO) 67.7 % (43.0-81.0); PLATELET COUNT (AUTO) 236 K/uL (150-450); RED BLOOD CELL COUNT(AUTO) 3.49 MIL/uL (4.0-5.2); WHITE BLOOD COUNT (AUTO) 7.4 K/uL (4.3-11.0)
[2021-08-08 08:33] LABS: CALCIUM, SERUM 9.3 mg/dL (8.5-10.1); CARBON DIOXIDE 17 mmol/L (21-32); CHLORIDE 91 mmol/L (98-107); CREATININE 5.6 mg/dL (0.6-1.3); GLUCOSE 201 mg/dL (74-106); MAGNESIUM 2.5 mg/dL (1.8-2.4); PHOSPHORUS 6.4 mg/dL (2.5-4.9); POTASSIUM 3.4 mmol/L (3.5-5.1); SODIUM SERUM 128 mmol/L (136-145)
[2021-08-08 08:37] LABS: UREA NITROGEN, BLOOD 98 mg/dL (7-18)
[2021-08-08 12:00] VITALS: BP 154/61
[2021-08-08] MEDS: LEVOFLOXACIN (250MG) 250 MG TABLET PO SCH (13:51)
[2021-08-08 16:00] VITALS: BP 170/83
--- NOTE | 2021-08-08 19:32 | NUR ---
LAY OUT MACHINE OPERATOR CLOSING NOTES: PATIENT IN BED, AWAKE, A/O X2-3 AND VERBALLY RESPONSIVE. SLOVENIAN SPEAKING. ON ROOM AIR, O2 SAT 97% AND PT TOLERATED WELL. BREATHING EVEN AND UNLABORED. NO SOB NOTED. IV ACCESS ON SHAMAR ML #18 AND INTACT AND PATENT. RIGHT CHEST WALL NO BLEEDING NOTED POST CATH REMOVAL. NO C/O PAIN OR DISCOMFORT. NO ACUTE DISTRESS. GTUBE FEEDING NEPHRO AT 65CC/HR X 12 HOURS ONLY STARTED AR 1800. PT ALSO ON PUREED DIET. ALL DUE MEDS GIVEN ORDERED. KNIGHT CATH INTACT WITH YELLOWISH/CLEAR URINE. ALL SAFETY MEASURES IN PLACE. HOB ELEVATED. BED IN LOWEST POSITION AND LOCKED. SIDE RIALS UP X2. PLACE CALL LIGHT WITH IN REACH. WILL ENDORSE TO NIGHT NURSE
[2021-08-08] MEDS: NEPRO 1,000 ML BOTTLE PEG SCH (19:34)
--- NOTE | 2021-08-08 19:35 | NUR ---
ENGINEERING OFFICER OPENING NOTES RECEIVED PATIENT LAYING AWAKE IN BED. A/O X2-3. PATIENT WITH REGULAR AND UNLABORED BREATHING ON ROOM AIR TOLERATED WELL. NO SIGNS AND SYMPTOMS OF DISTRESS NOTED AT THIS TIME. NO COMPLAINS OF PAIN OR DISCOMFORT AT THIS TIME. PATIENT ON G -TUBE FEEDING NEPHRO @ 65 ML/HR TOLERATED WELL. G-TUBE PATENT AND INTACT. IV ACCESS SHAMAR MIDLINE SL. IV ACCESS PATENT AND INTACT. SAFETY PRECAUTIONS ENFORCED WITH BED LOCKED AND AT LOWEST POSITION. CALL LIGHT WITHIN REACH AT ALL TIMES. WILL CONTINUE TO MONITOR PATIENT.
[2021-08-08 20:00] VITALS: BP 156/65
[2021-08-08] MEDS: ATORVASTATIN 10 MG TABLET GT SCH (21:08)
[2021-08-08] MEDS: DOXAZOSIN MESYLATE (1 MG) 1 MG TABLET GT SCH (21:32)
[2021-08-08] MEDS: INSULIN GLARGINE, 100 UNIT/ML CARTRIDGE SQ SCH (22:09)
[2021-08-09] VITALS: BP 145/67
[2021-08-09 04:00] VITALS: BP 140/69
--- NOTE | 2021-08-09 06:53 | NUR ---
REGIONAL TANKER TRUCK DRIVER CLOSING NOTES PATIENT ASLEEP BUT EASILY AROUSABLE IN BED. A/O X2-3. PATIENT WITH REGULAR AND UNLABORED BREATHING ON ROOM AIR TOLERATED WELL. NO SIGNS AND SYMPTOMS OF DISTRESS NOTED AT THIS TIME. NO COMPLAINS OF PAIN OR DISCOMFORT AT THIS TIME. PATIENT ON TELE MONITOR READING SR @ 76 BPM. G-TUBE PATENT AND INTACT. IV ACCESS SHAMAR MIDLINE SL. IV ACCESS PATENT AND INTACT. SAFETY PRECAUTIONS ENFORCED WITH BED LOCKED AND AT LOWEST POSITION. CALL LIGHT WITHIN REACH AT ALL TIMES. WILL ENDORSE CONTINUITY OF CARE TO DAY SHIFT NURSE.
[2021-08-09 07:27] LABS: BASOPHILS % (AUTO) 0.2 % (0.0-2.0); EOSINOPHILS % (AUTO) 0.8 % (0.0-6.0); HEMATOCRIT 30 % (33-45); LYMPHOCYTES # (AUTO) 1.5 K/uL (0.8-4.8); LYMPHOCYTES % (AUTO) 19.8 % (20.0-44.0); MEAN CORPUSCULAR HGB CONC 33 g/dl (31.0-36.0); MEAN CORPUSCULAR VOLUME 91 fL (82-100); MONOCYTES # (AUTO) 0.6 K/uL (0.1-1.30); NEUTROPHILS # (AUTO) 5.3 K/uL (1.8-8.9); NEUTROPHILS % (AUTO) 71.2 % (43.0-81.0); PLATELET COUNT (AUTO) 250 K/uL (150-450); RED BLOOD CELL COUNT(AUTO) 3.35 MIL/uL (4.0-5.2); WHITE BLOOD COUNT (AUTO) 7.5 K/uL (4.3-11.0)
--- NOTE | 2021-08-09 07:45 | NUR ---
POST DOCTORAL RESEARCHER OPENING NOTES RECEIVED PATIENT LAYING AWAKE IN BED. A/O X2 . PATIENT WITH REGULAR AND UNLABORED BREATHING .NO COMPLAINS OF PAIN OR DISCOMFORT AT THIS TIME. G-TUBE PATENT AND INTACT. IV ACCESS SHAMAR MIDLINE SL. IV ACCESS PATENT AND INTACT. SAFETY PRECAUTIONS ENFORCED WITH BED LOCKED AND AT LOWEST POSITION. CALL LIGHT WITHIN REACH AT ALL TIMES.
[2021-08-09 08:00] VITALS: BP 146/68
[2021-08-09 08:38] LABS: CALCIUM, SERUM 9.5 mg/dL (8.5-10.1); CARBON DIOXIDE 17 mmol/L (21-32); CHLORIDE 92 mmol/L (98-107); CREATININE 6.5 mg/dL (0.6-1.3); GLUCOSE 282 mg/dL (74-106); MAGNESIUM 2.6 mg/dL (1.8-2.4); PHOSPHORUS 7.5 mg/dL (2.5-4.9); POTASSIUM 3.7 mmol/L (3.5-5.1); SODIUM SERUM 129 mmol/L (136-145)
[2021-08-09 08:45] LABS: UREA NITROGEN, BLOOD 112 mg/dL (7-18)
[2021-08-09] MEDS: BLOOD SUGAR DIAGNOSTIC 1 EACH STRIP IN SCH ×4 (08:46→22:58)
[2021-08-09] MEDS: METOPROLOL TARTRATE 25 MG TABLET GT SCH ×2 (08:47→17:38)
[2021-08-09] MEDS: FAMOTIDINE (20 MG) 20 MG TABLET GT SCH (08:47)
[2021-08-09] MEDS: OXYBUTYNIN CHLORIDE ER 5 MG TAB PO SCH (08:47)
[2021-08-09] MEDS: LEVOTHYROXINE SODIUM 100 MCG TABLET GT SCH (08:47)
[2021-08-09] MEDS: CLOTRIMAZOLE 1% 15 GM TUBE TP SCH ×2 (08:49→17:38)
[2021-08-09] MEDS: MUPIROCIN OINT 2% 22 GM TUBE NS SCH ×2 (08:50→21:00)
[2021-08-09] MEDS: INSULIN REGULAR, HUMAN 100 UNIT/ML 3 ML VIAL SQ PRN ×3 (08:52→16:57)
[2021-08-09 12:00] VITALS: BP 146/73
[2021-08-09] MEDS: ACETAMINOPHEN 650 MG/20.3 ML UDC GT PRN ×2 (13:58→22:04)
[2021-08-09 16:00] VITALS: BP 118/76
[2021-08-09] MEDS: NEPRO 1,000 ML BOTTLE PEG SCH (19:28)
--- NOTE | 2021-08-09 19:43 | NUR ---
TEXTILE SLITTING MACHINE OPERATOR CLOSING NOTES PATIENT ASLEEP BUT EASILY AROUSABLE IN BED. A/O X2-3. PATIENT WITH REGULAR AND UNLABORED BREATHING ON ROOM AIR TOLERATED WELL. NO SIGNS AND SYMPTOMS OF DISTRESS NOTED AT THIS TIME. NO COMPLAINS OF PAIN OR DISCOMFORT AT THIS TIME. PATIENT ON TELE MONITOR . G-TUBE PATENT AND INTACT. IV ACCESS SHAMAR MIDLINE SL. IV ACCESS PATENT AND INTACT. SAFETY PRECAUTIONS ENFORCED WITH BED LOCKED AND AT LOWEST POSITION. CALL LIGHT WITHIN REACH AT ALL TIMES. WILL ENDORSE CONTINUITY OF CARE TO CAN FILLER NURSE
[2021-08-09 20:00] VITALS: BP 129/60
--- NOTE | 2021-08-09 21:55 | NUR ---
HD ended -2L off. Patient tolerated well but requests PRN tylenol for pain to R thigh HD cath site.
[2021-08-09] MEDS: ATORVASTATIN 10 MG TABLET GT SCH (22:03)
[2021-08-09] MEDS: DOXAZOSIN MESYLATE (1 MG) 1 MG TABLET GT SCH (22:03)
[2021-08-09] MEDS: INSULIN GLARGINE, 100 UNIT/ML CARTRIDGE SQ SCH (22:56)
[2021-08-09] MEDS: *INSULIN REGULAR(HUMULIN R)HUM 100 UNIT/ML VIAL SQ PRN (22:57)
[2021-08-09] MEDS ORDERED: VANCOMYCIN 1 GM VIAL ONE (23:07)
[2021-08-09] MEDS: VANCOMYCIN POST DIALYSIS 500MG IV PRN ×2 (23:09)
[2021-08-10] VITALS (7 sets, daily range): BP systolic 109–151; BP diastolic 47–66
--- NOTE | 2021-08-10 06:18 | NUR ---
RN CLOSING NOTES Patient is A&Ox2-3 awake and in bed at this time. able to fall asleep after being cleaned and repositioned when dialysis ended. SR in 70s on the tele monitor overnight. Nepro at 65ml/hr x12h turned off at 0600. Patient tolerated well. SHAMAR midline intact and patent. R femoral HD cath intact. No s/s of hypo or hyperglycemia.
[2021-08-10 06:45] LABS: BASOPHILS % (AUTO) 0.3 % (0.0-2.0); EOSINOPHILS % (AUTO) 0.6 % (0.0-6.0); HEMATOCRIT 32 % (33-45); HEMOGLOBIN 10.7 g/dL (11.5-14.8); LYMPHOCYTES # (AUTO) 1.3 K/uL (0.8-4.8); LYMPHOCYTES % (AUTO) 18.2 % (20.0-44.0); MEAN CORPUSCULAR HGB CONC 34 g/dl (31.0-36.0); MEAN CORPUSCULAR VOLUME 89 fL (82-100); MONOCYTES # (AUTO) 0.6 K/uL (0.1-1.30); MONOCYTES % (AUTO) 8.2 % (2.0-12.0); NEUTROPHILS # (AUTO) 5.2 K/uL (1.8-8.9); NEUTROPHILS % (AUTO) 72.7 % (43.0-81.0); PLATELET COUNT (AUTO) 215 K/uL (150-450); RED BLOOD CELL COUNT(AUTO) 3.56 MIL/uL (4.0-5.2); WHITE BLOOD COUNT (AUTO) 7.1 K/uL (4.3-11.0)
[2021-08-10 06:52] LABS: CARBON DIOXIDE 21 mmol/L (21-32); CHLORIDE 94 mmol/L (98-107); CREATININE 4.2 mg/dL (0.6-1.3); GLUCOSE 230 mg/dL (74-106); MAGNESIUM 2.3 mg/dL (1.8-2.4); PHOSPHORUS 4.9 mg/dL (2.5-4.9); POTASSIUM 3.5 mmol/L (3.5-5.1); SODIUM SERUM 131 mmol/L (136-145); UREA NITROGEN, BLOOD 61 mg/dL (7-18)
[2021-08-10 07:04] LABS: CALCIUM, SERUM 8.6 mg/dL (8.5-10.1)
--- NOTE | 2021-08-10 07:15 | NUR ---
YIELD IMPROVEMENT ENGINEER OPENING NOTED: RECEIVED PATIENT LAYING AWAKE IN BED. A/O X2-3 . PATIENT WITH REGULAR AND UNLABORED BREATHING .NO COMPLAINS OF PAIN OR DISCOMFORT AT THIS TIME. G-TUBE PATENT AND INTACT. IV ACCESS SHAMAR MIDLINE SL. IV ACCESS PATENT AND INTACT.RIGHT FEMORAL HD CATH IN PLACE,INTACT, NO BLEEDING NOTED. SAFETY PRECAUTIONS ENFORCED WITH BED LOCKED AND AT LOWEST POSITION. CALL LIGHT WITHIN REACH AT ALL TIMES.
[2021-08-10] MEDS: BLOOD SUGAR DIAGNOSTIC 1 EACH STRIP IN SCH ×4 (07:47→21:23)
[2021-08-10] MEDS: OXYBUTYNIN CHLORIDE ER 5 MG TAB PO SCH (08:13)
[2021-08-10] MEDS: FAMOTIDINE (20 MG) 20 MG TABLET GT SCH (08:13)
[2021-08-10] MEDS: LEVOTHYROXINE SODIUM 100 MCG TABLET GT SCH (08:13)
[2021-08-10] MEDS: METOPROLOL TARTRATE 25 MG TABLET GT SCH ×2 (08:19→17:19)
[2021-08-10] MEDS: *INSULIN REGULAR(HUMULIN R)HUM 100 UNIT/ML VIAL SQ PRN ×2 (08:24→21:26)
[2021-08-10] MEDS: ACETAMINOPHEN 650 MG/20.3 ML UDC GT PRN ×2 (08:29→18:17)
[2021-08-10] MEDS: CLOTRIMAZOLE 1% 15 GM TUBE TP SCH ×2 (08:30→17:03)
[2021-08-10] MEDS: MUPIROCIN OINT 2% 22 GM TUBE NS SCH ×2 (08:30→21:08)
[2021-08-10] MEDS: LEVOFLOXACIN (250MG) 250 MG TABLET PO SCH (14:16)
[2021-08-10] MEDS: NEPRO 1,000 ML BOTTLE PEG SCH (17:57)
--- NOTE | 2021-08-10 18:00 | NUR ---
CARPET JACK NOTES: FEMORAL HD CATH DRESSING IS SOILED,DRESSING CHANGED, PROCEDURE WELL TOLERATED, WOUND CARE DONE, KEPT CLEAN AND DRY
--- NOTE | 2021-08-10 19:43 | NUR ---
MS RN OPENING NOTES PATIENT ASLEEP BUT EASILY AROUSABLE IN BED. A/O X2-3. PATIENT WITH REGULAR AND UNLABORED BREATHING ON ROOM AIR TOLERATED WELL. NO SIGNS AND SYMPTOMS OF DISTRESS NOTED AT THIS TIME. NO COMPLAINS OF PAIN OR DISCOMFORT AT THIS TIME. G-TUBE PATENT AND INTACT. IV ACCESS SHAMAR MIDLINE SL. IV ACCESS PATENT AND INTACT. SAFETY PRECAUTIONS ENFORCED WITH BED LOCKED AND AT LOWEST POSITION. CALL LIGHT WITHIN REACH AT ALL TIMES. WILL CONTINUE TO MONITOR.
--- NOTE | 2021-08-10 20:13 | NUR ---
CRATE BUILDER CLOSING NOTES: PATIENT IN BED, AWAKE, A/O X2-3 AND VERBALLY RESPONSIVE. SETSWANA SPEAKING. ON ROOM AIR, O2 SAT 97% AND PT TOLERATED WELL. BREATHING EVEN AND UNLABORED. NO SOB NOTED. IV ACCESS ON SHAMAR ML #18 AND INTACT AND PATENT. RIGHT FEMORAL HD CATH IN PLACE PATENT WITHOUT ANY BLEEDING. NO C/O PAIN OR DISCOMFORT. NO ACUTE DISTRESS. G TUBE FEEDING NEPHRO AT 65CC/HR X 12 HOURS ONLY STARTED AR 1800. PT ALSO ON PUREED DIET. ALL DUE MEDS GIVEN ORDERED. KNIGHT CATH INTACT WITH YELLOWISH/CLEAR URINE. ALL SAFETY MEASURES IN PLACE. HOB ELEVATED. BED IN LOWEST POSITION AND LOCKED. SIDE RIALS UP X2. PLACE CALL LIGHT WITH IN REACH. WILL ENDORSE TO NIGHT NURSE
[2021-08-10] MEDS: ATORVASTATIN 10 MG TABLET GT SCH (21:20)
[2021-08-10] MEDS: INSULIN GLARGINE, 100 UNIT/ML CARTRIDGE SQ SCH (21:27)
[2021-08-10] MEDS: DOXAZOSIN MESYLATE (1 MG) 1 MG TABLET GT SCH (21:33)
[2021-08-11 05:00] VITALS: BP 129/65
[2021-08-11 06:39] LABS: BASOPHILS % (AUTO) 0.3 % (0.0-2.0); EOSINOPHILS % (AUTO) 1.3 % (0.0-6.0); HEMATOCRIT 32 % (33-45); HEMOGLOBIN 10.5 g/dL (11.5-14.8); LYMPHOCYTES # (AUTO) 1.7 K/uL (0.8-4.8); LYMPHOCYTES % (AUTO) 25.1 % (20.0-44.0); MEAN CORPUSCULAR HGB CONC 33 g/dl (31.0-36.0); MEAN CORPUSCULAR VOLUME 90 fL (82-100); MONOCYTES # (AUTO) 0.6 K/uL (0.1-1.30); MONOCYTES % (AUTO) 8.5 % (2.0-12.0); NEUTROPHILS # (AUTO) 4.5 K/uL (1.8-8.9); NEUTROPHILS % (AUTO) 64.8 % (43.0-81.0); PLATELET COUNT (AUTO) 209 K/uL (150-450); WHITE BLOOD COUNT (AUTO) 6.9 K/uL (4.3-11.0)
--- NOTE | 2021-08-11 06:50 | NUR ---
HOSPITALITY HOUSEKEEPER CLOSING NOTES: PATIENT IN BED, AWAKE, A/O X1-2 AND VERBALLY RESPONSIVE WITH EPISODES OF CONFUSION ON ROOM AIR, O2 SAT 97% AND PT TOLERATED WELL. BREATHING EVEN AND UNLABORED. NO SOB NOTED. IV ACCESS ON SHAMAR ML #18 AND INTACT AND PATENT. RIGHT FEMORAL HD CATH IN PLACE PATENT WITHOUT ANY BLEEDING. NO C/O PAIN OR DISCOMFORT. NO ACUTE DISTRESS. G TUBE FEEDING NEPHRO AT 65CC/HR X 12 HOURS ONLY STOPPED AT 6:51AM. PT ALSO ON PUREED DIET. KNIGHT CATH INTACT WITH YELLOWISH/CLEAR URINE. ALL SAFETY MEASURES IN PLACE. HOB ELEVATED. BED IN LOWEST POSITION AND LOCKED. SIDE RIALS UP X2. PLACE CALL LIGHT WITH IN REACH. WILL ENDORSE CRAE TO [place] SHIFT NURSE.
[2021-08-11 07:06] LABS: CALCIUM, SERUM 9.4 mg/dL (8.5-10.1); CARBON DIOXIDE 21 mmol/L (21-32); CHLORIDE 93 mmol/L (98-107); CREATININE 4.9 mg/dL (0.6-1.3); GLUCOSE 225 mg/dL (74-106); MAGNESIUM 2.5 mg/dL (1.8-2.4); PHOSPHORUS 7.7 mg/dL (2.5-4.9); POTASSIUM 3.8 mmol/L (3.5-5.1); SODIUM SERUM 131 mmol/L (136-145)
--- NOTE | 2021-08-11 07:30 | NUR ---
RN NOTES PT FOUND SEMI FOWLERS DISPLAYING NO S/S OF DISTRESS, PT ENDORSES NO PAIN AND IS BREATHING EVEN AND UNLABORED ON RA. R UA ML IS PATIENT AND INTACT. R FEMORAL HD CATH IS CLEAN AND DRY. KNIGHT CATH BELOW PATIENT DRAINING BY GRAVITY. VSS, RN WILL MONITOR AND TREAT THROUGHOUT SHIFT. SAFETY MEASURES IN PLACE, BED LOCKED AND IN LOWEST POSITION, SIDE RAILS UPX2, CALL LIGHT WITHIN REACH, BED ALARM ARMED.
[2021-08-11 07:38] LABS: UREA NITROGEN, BLOOD 85 mg/dL (7-18)
[2021-08-11 08:00] VITALS: BP 100/82
[2021-08-11] MEDS: BLOOD SUGAR DIAGNOSTIC 1 EACH STRIP IN SCH ×4 (08:05→22:31)
[2021-08-11] MEDS: METOPROLOL TARTRATE 25 MG TABLET GT SCH ×2 (08:45→17:38)
[2021-08-11] MEDS: OXYBUTYNIN CHLORIDE ER 5 MG TAB PO SCH (08:46)
[2021-08-11] MEDS: LEVOTHYROXINE SODIUM 100 MCG TABLET GT SCH (08:46)
[2021-08-11] MEDS: FAMOTIDINE (20 MG) 20 MG TABLET GT SCH (08:46)
[2021-08-11] MEDS: CLOTRIMAZOLE 1% 15 GM TUBE TP SCH ×2 (08:48→17:38)
[2021-08-11] MEDS: MUPIROCIN OINT 2% 22 GM TUBE NS SCH ×2 (08:48→21:59)
[2021-08-11] MEDS: *INSULIN REGULAR(HUMULIN R)HUM 100 UNIT/ML VIAL SQ PRN ×4 (08:51→22:32)
[2021-08-11 13:00] VITALS: BP 117/80
--- NOTE | 2021-08-11 19:30 | NUR ---
RN NOTES PT FOUND SEMI FOWLERS DISPLAYING NO S/S OF DISTRESS, PT ENDORSES NO PAIN AND IS BREATHING EVEN AND UNLABORED ON RA. R UA ML IS PATIENT AND INTACT. R FEMORAL HD CATH IS CLEAN AND DRY. KNIGHT CATH BELOW PATIENT DRAINING BY GRAVITY. SBAR AND REPORT GIVEN TO ACID PURIFIER RN, ALL QUESTIONS ANSWERED. SAFETY MEASURES IN PLACE, BED LOCKED AND IN LOWEST POSITION, SIDE RAILS UPX2, CALL LIGHT WITHIN REACH, BED ALARM ARMED. PT ENDORSED IN STABLE CONDITION FOR LEONARDO.
--- NOTE | 2021-08-11 19:45 | NUR ---
RN NOTE PT RECEIVED IN BED, FAMILY AT BEDSIDE. PT IS ON ROOM AIR SHOWING NO S/SX OF RESP DISTRESS/SOB. BREATHING EVEN AND UNLABORED. CURRENTLY A/OX2-3. ON SOLUTION MANAGER SHOWING NSR. KNIGHT CATH NOTED. IV ACCESS NOTED ON RIGHT UA ML #18. PATENT AND INTACT. RIGHT UPPER CHEST WALL HD CATH NOTED. ALL SAFETY MEASURES IMPLEMENTED. HOB ELEVATED. BED LOCKED AND IN LOWEST POSITION. SIDE RAILS UP. CALL LIGHT WITHIN REACH. WILL CONTINUE TO MONITOR AND ASSESS FOR ANY CHANGES DURING SHIFT.
[2021-08-11 20:00] VITALS: BP 118/58
[2021-08-11] MEDS: NEPRO 1,000 ML BOTTLE PEG SCH (22:16)
[2021-08-11] MEDS: ATORVASTATIN 10 MG TABLET GT SCH (22:31)
[2021-08-11] MEDS: DOXAZOSIN MESYLATE (1 MG) 1 MG TABLET GT SCH (22:31)
[2021-08-11] MEDS: INSULIN GLARGINE, 100 UNIT/ML CARTRIDGE SQ SCH (22:34)
[2021-08-12 04:00] VITALS: BP 112/67
[2021-08-12 07:06] LABS: CALCIUM, SERUM 9.5 mg/dL (8.5-10.1); CARBON DIOXIDE 20 mmol/L (21-32); CHLORIDE 97 mmol/L (98-107); CREATININE 4.1 mg/dL (0.6-1.3); GLUCOSE 252 mg/dL (74-106); SODIUM SERUM 132 mmol/L (136-145); UREA NITROGEN, BLOOD 66 mg/dL (7-18)
--- NOTE | 2021-08-12 07:25 | NUR ---
RN OPENING NOTES RECEIVED PT IN BED. A/OX2-3. STABLE ON ROOM AIR. NO SOB OR ANY S/SX OF DISTRESS. TELE MONITOR SHOWING NSR. KNIGHT CATH IN PLACE. IV ACCESS ON SHAMAR ML #18. PATENT AND INTACT. R CHEST WALL HD CATH NOTED. SAFETY MEASURES IMPLEMENTED. BED LOCKED AND IN LOWEST POSITION WITH SIDE RAILS UP. WILL CONTINUE TO MONITOR.
[2021-08-12] MEDS: BLOOD SUGAR DIAGNOSTIC 1 EACH STRIP IN SCH ×4 (07:30→21:46)
[2021-08-12 07:45] LABS: BASOPHILS % (AUTO) 0.5 % (0.0-2.0); EOSINOPHILS % (AUTO) 0.9 % (0.0-6.0); HEMATOCRIT 34 % (33-45); HEMOGLOBIN 11.1 g/dL (11.5-14.8); LYMPHOCYTES # (AUTO) 1.5 K/uL (0.8-4.8); LYMPHOCYTES % (AUTO) 24.3 % (20.0-44.0); MEAN CORPUSCULAR HGB CONC 33 g/dl (31.0-36.0); MEAN CORPUSCULAR VOLUME 91 fL (82-100); MONOCYTES # (AUTO) 0.6 K/uL (0.1-1.30); MONOCYTES % (AUTO) 9.1 % (2.0-12.0); NEUTROPHILS % (AUTO) 65.2 % (43.0-81.0); PLATELET COUNT (AUTO) 176 K/uL (150-450); RED BLOOD CELL COUNT(AUTO) 3.71 MIL/uL (4.0-5.2); WHITE BLOOD COUNT (AUTO) 6.1 K/uL (4.3-11.0)
[2021-08-12 08:00] VITALS: BP 131/53
[2021-08-12] MEDS: CLOTRIMAZOLE 1% 15 GM TUBE TP SCH ×2 (09:00→17:23)
[2021-08-12] MEDS: MUPIROCIN OINT 2% 22 GM TUBE NS SCH ×2 (09:00→21:46)
[2021-08-12] MEDS: METOPROLOL TARTRATE 25 MG TABLET GT SCH ×2 (10:23→17:20)
[2021-08-12] MEDS: OXYBUTYNIN CHLORIDE ER 5 MG TAB PO SCH (10:23)
[2021-08-12] MEDS: FAMOTIDINE (20 MG) 20 MG TABLET GT SCH (10:23)
[2021-08-12] MEDS: LEVOTHYROXINE SODIUM 100 MCG TABLET GT SCH (10:24)
[2021-08-12] MEDS: INSULIN REGULAR, HUMAN 100 UNIT/ML 3 ML VIAL SQ PRN ×2 (12:24→18:04)
[2021-08-12] MEDS: LEVOFLOXACIN (250MG) 250 MG TABLET PO SCH (14:19)
[2021-08-12 16:00] VITALS: BP 125/55
[2021-08-12 20:00] VITALS: BP 123/64
--- NOTE | 2021-08-12 20:00 | NUR ---
MS RN NOTE PT IN BED AWAKE WITH SR. DIRECTOR AT HER SIDE. NO DISTRESS OR DISCOMFORT NOTED. NO S/S OF PAIN NOTED. GT INTACT AND PATENT,GT FEEDING OFF ORDERED. PT WILL BE NPO AFTER MIDNIGTH DUE TO PROCEDURE IN THE MORNING. HD CATH RT FEMORAL INTACT AND PATENT. ALL NEEDS ATTENDED. KEPT HER DRY AND CLEAN. VSS. CONTINUE TO MONITOR HER.
[2021-08-12] MEDS: DOXAZOSIN MESYLATE (1 MG) 1 MG TABLET GT SCH (21:37)
[2021-08-12] MEDS: ATORVASTATIN 10 MG TABLET GT SCH (21:37)
[2021-08-12] MEDS: INSULIN GLARGINE, 100 UNIT/ML CARTRIDGE SQ SCH (21:38)
[2021-08-13] VITALS (8 sets, daily range): BP systolic 92–155; BP diastolic 46–94
--- NOTE | 2021-08-13 06:52 | NUR ---
MS RN NOTE PT IN BED AWAKE. NO DISTRESS OR DISCOMFORT NOTED. PT REMAIN NPO. DENIES PAIN. ALL NEEDS ATTENDED. KEPT HER DRY AND CLEAN. SIDE RAILS UP X 2 AND CALL LIGHT WITHIN REACH. WILL ENDORSE TO DAY SHIFT NURSE.
[2021-08-13 07:11] LABS: CALCIUM, SERUM 9.7 mg/dL (8.5-10.1); CARBON DIOXIDE 18 mmol/L (21-32); CHLORIDE 96 mmol/L (98-107); CREATININE 5.1 mg/dL (0.6-1.3); GLUCOSE 138 mg/dL (74-106); POTASSIUM 4.5 mmol/L (3.5-5.1); SODIUM SERUM 130 mmol/L (136-145)
[2021-08-13 07:18] LABS: BASOPHILS % (AUTO) 0.5 % (0.0-2.0); HEMATOCRIT 32 % (33-45); HEMOGLOBIN 10.6 g/dL (11.5-14.8); LYMPHOCYTES # (AUTO) 2.4 K/uL (0.8-4.8); LYMPHOCYTES % (AUTO) 32.1 % (20.0-44.0); MEAN CORPUSCULAR HGB CONC 33 g/dl (31.0-36.0); MEAN CORPUSCULAR VOLUME 91 fL (82-100); MONOCYTES # (AUTO) 0.6 K/uL (0.1-1.30); MONOCYTES % (AUTO) 8.2 % (2.0-12.0); NEUTROPHILS # (AUTO) 4.3 K/uL (1.8-8.9); NEUTROPHILS % (AUTO) 58.2 % (43.0-81.0); PLATELET COUNT (AUTO) 178 K/uL (150-450); RED BLOOD CELL COUNT(AUTO) 3.54 MIL/uL (4.0-5.2); WHITE BLOOD COUNT (AUTO) 7.4 K/uL (4.3-11.0)
[2021-08-13 07:22] LABS: UREA NITROGEN, BLOOD 92 mg/dL (7-18)
--- NOTE | 2021-08-13 07:37 | NUR ---
RN OPENING NOTES: PATIENT ASLEEP BUT EASILY AROUSABLE IN BED. A/O X2-3. PATIENT WITH EVEN AND UNLABORED BREATHING ON ROOM AIR TOLERATED WELL. NO SIGNS AND SYMPTOMS OF DISTRESS NOTED AT THIS TIME. NO COMPLAINS OF PAIN OR DISCOMFORT AT THIS TIME. G-TUBE PATENT AND INTACT. IV ACCESS SHAMAR MIDLINE SL. IV ACCESS PATENT AND INTACT.PATIENT NPO FOR PERMA CATH INSERTION. SAFETY PRECAUTIONS ENFORCED WITH BED LOCKED AND AT LOWEST POSITION. CALL LIGHT WITHIN REACH AT ALL TIMES. WILL CONTINUE TO MONITOR.
[2021-08-13] MEDS: BLOOD SUGAR DIAGNOSTIC 1 EACH STRIP IN SCH ×4 (08:00→22:27)
[2021-08-13] MEDS: METOPROLOL TARTRATE 25 MG TABLET GT SCH ×2 (09:00→16:42)
[2021-08-13] MEDS: OXYBUTYNIN CHLORIDE ER 5 MG TAB PO SCH (09:44)
[2021-08-13] MEDS: LEVOTHYROXINE SODIUM 100 MCG TABLET GT SCH (09:44)
[2021-08-13] MEDS: FAMOTIDINE (20 MG) 20 MG TABLET GT SCH (09:44)
[2021-08-13] MEDS: MUPIROCIN OINT 2% 22 GM TUBE NS SCH ×2 (09:53→21:00)
[2021-08-13] MEDS: CLOTRIMAZOLE 1% 15 GM TUBE TP SCH ×2 (09:54→16:40)
[2021-08-13] MEDS: VANCOMYCIN POST DIALYSIS 500MG IV PRN ×2 (16:36)
[2021-08-13] MEDS ORDERED: LIDOCAINE 1% INJ 50 ML MDV IJ ONE (17:01)
[2021-08-13] MEDS ORDERED: BUPIVACAINE 0.25% 75 MG/30 ML VIAL ONE (17:01)
[2021-08-13] MEDS ORDERED: HEPARIN SODIUM, PORCINE 1,000 UNIT/ML VIAL ONE (17:01)
[2021-08-13] MEDS ORDERED: IOHEXOL 0 ML IV ONE (17:01)
[2021-08-13] MEDS ORDERED: FENTANYL PF 100MCG/2ML AMPUL ONE (17:47)
[2021-08-13] MEDS ORDERED: MIDAZOLAM HCL 2 MG/2ML VIAL ONE (17:48)
--- NOTE | 2021-08-13 17:53 | NUR ---
LITHOGRAPHIC STRIPPER NOTES: PATIENT NPO SINCE MIDNIGHT,DIALYSIS FINISHED AT 1700 WITH 2 LITERS FLUID OUT, BP 110/60,HR 99,NO PAIN OR DISCOMFORT, WOUND CARE DONE, DAUGHTER AT BEDSIDE, RUBBER PRINTING MACHINE OPERATOR BY SURGERY STAFF FOR PERMA CATH INSERTION
--- NOTE | 2021-08-13 20:00 | NUR ---
RN NOTES RECEIVED PT VIA BED FROM PACU S/P R CW PERMA CATH PLACEMENT. REPORT GIVEN BY IAN POMPA ALL PERTINENT PT INFO OBTAINED. SITE DRESSING CLEAN, DRY, SECURED AND INTACT. PT NO COMPLAINS OF PAIN AND DISCOMFORT AT THIS TIME. CURRENTLY ON ROOM AIR. VITAL SIGNS TAKEN AND RECORDED ; WILL CONTINUE TO MONITOR AND ASSESS ALL THROUGHOUT THE SHIFT. CONTACT LENS FLASHING PUNCHER WELL AWARE.
[2021-08-13] MEDS: NEPRO 1,000 ML BOTTLE PEG SCH (21:30)
[2021-08-13] MEDS: ATORVASTATIN 10 MG TABLET GT SCH (22:19)
[2021-08-13] MEDS: DOXAZOSIN MESYLATE (1 MG) 1 MG TABLET GT SCH (22:21)
[2021-08-13] MEDS: *INSULIN REGULAR(HUMULIN R)HUM 100 UNIT/ML VIAL SQ PRN (22:32)
[2021-08-13] MEDS: INSULIN GLARGINE, 100 UNIT/ML CARTRIDGE SQ SCH (22:33)
[2021-08-13] MEDS: ACETAMINOPHEN 650 MG/20.3 ML UDC GT PRN (22:56)
[2021-08-14] VITALS: BP 154/74
[2021-08-14 04:00] VITALS: BP 131/74
[2021-08-14] MEDS: ACETAMINOPHEN 650 MG/20.3 ML UDC GT PRN ×2 (06:14→13:56)
--- NOTE | 2021-08-14 06:34 | NUR ---
RN CLOSING NOTE: PATIENT REMAINS IN ROOM IN NO SIGNS OF RESPIRATORY DISTRESS, PATIENT STILL ON ROOM AIR;TOLERATING WELL SATURATING @ >95% SP02. RCW PERMA CATH DRESSING SITE REMAINED INTACT, SECURED AND CLEAN WITH MILES SIGNS OF BLEEDING AND INFECTION AT THIS TIME. SAFETY MEASURES IMPLEMENTED, BED IN LOWEST POSITION, LOCKED, SIDE RAILS UP, CALL LIGHT WITHIN REACH. ALL NEEDS AND ORDERS ADDRESSED DURING THE SHIFT. IV ACCESS MAINTAINED INTACT, SECURED AND FLUSHING WELL. ALL DUE MEDS GIVEN ORDERED & SCHEDULED ; PATIENT TOLERATED WELL. PATIENT KEPT CLEAN AND COMFORTABLE WITHIN THE SHIFT. PATIENT ENDORSED TO INCOMING SHIFT RN WITH STABLE VITAL SIGN AND FOR CONTINUITY OF CARE.
[2021-08-14 06:43] LABS: BASOPHILS % (AUTO) 0.4 % (0.0-2.0); HEMATOCRIT 31 % (33-45); HEMOGLOBIN 10.3 g/dL (11.5-14.8); LYMPHOCYTES # (AUTO) 1.1 K/uL (0.8-4.8); LYMPHOCYTES % (AUTO) 17.1 % (20.0-44.0); MEAN CORPUSCULAR HGB CONC 33 g/dl (31.0-36.0); MEAN CORPUSCULAR VOLUME 91 fL (82-100); MONOCYTES # (AUTO) 0.5 K/uL (0.1-1.30); MONOCYTES % (AUTO) 8.8 % (2.0-12.0); NEUTROPHILS # (AUTO) 4.6 K/uL (1.8-8.9); NEUTROPHILS % (AUTO) 72.7 % (43.0-81.0); PLATELET COUNT (AUTO) 138 K/uL (150-450); RED BLOOD CELL COUNT(AUTO) 3.41 MIL/uL (4.0-5.2); WHITE BLOOD COUNT (AUTO) 6.3 K/uL (4.3-11.0)
--- NOTE | 2021-08-14 07:15 | NUR ---
RN OPENING NOTES: RECEIVED PATIENT ON BED, AWAKE, ALERT X 2-3 AND VERBALLY RESPONSIVE. ON ROOM AIR. RESPIRATORY EVEN AND UNLABORED, NO SOB NOTED. REMAIN AFEBRILE. NO S/S OF DISTRESS NOTED. NOTED WITH SHAMAR MID LINE , INTACT PATENT, FLUSHED WITH NS. RIGHT CHEST PERMA CATH IN PLACE , NO S/OF INFECTION OR BLEEDING,RIGHT FEMORAL CATH IN PLACE WITHOUT ANY S/S OF INFECTION OR BLEEDING. GTF OF NEPRO AT 65 CC/HR IS RUNNING WELL TOLERATED. SAFETY MEASURE PROVIDED. BED IN LOWEST POSITION, LOCKED. BED ALARM ARMED. CONTINUE TO MONITOR.
[2021-08-14 07:25] LABS: CALCIUM, SERUM 8.8 mg/dL (8.5-10.1); CARBON DIOXIDE 20 mmol/L (21-32); CHLORIDE 97 mmol/L (98-107); GLUCOSE 211 mg/dL (74-106); POTASSIUM 3.6 mmol/L (3.5-5.1); SODIUM SERUM 130 mmol/L (136-145); UREA NITROGEN, BLOOD 65 mg/dL (7-18)
[2021-08-14] MEDS: BLOOD SUGAR DIAGNOSTIC 1 EACH STRIP IN SCH ×4 (07:34→22:00)
[2021-08-14 08:00] VITALS: BP 143/78
[2021-08-14] MEDS: INSULIN REGULAR, HUMAN 100 UNIT/ML 3 ML VIAL SQ PRN (08:23)
[2021-08-14] MEDS: LEVOTHYROXINE SODIUM 100 MCG TABLET GT SCH (09:10)
[2021-08-14] MEDS: OXYBUTYNIN CHLORIDE ER 5 MG TAB PO SCH (09:10)
[2021-08-14] MEDS: FAMOTIDINE (20 MG) 20 MG TABLET GT SCH (09:10)
[2021-08-14] MEDS: METOPROLOL TARTRATE 25 MG TABLET GT SCH ×2 (09:12→17:22)
[2021-08-14] MEDS: CLOTRIMAZOLE 1% 15 GM TUBE TP SCH ×2 (09:13→17:21)
[2021-08-14] MEDS: MUPIROCIN OINT 2% 22 GM TUBE NS SCH ×2 (09:13→21:46)
--- NOTE | 2021-08-14 11:30 | NUR ---
DESK OPERATOR NOTES: SPOKE TO PRECISE WINDER ON THE FLOOR TO NOTIFY OF THE NEW ORDER TO REMOVE FEMORAL CATH, HE REPORTED TO HIS LUNCHEONETTE MANAGER AND SAID SOMEONE WILL REMOVE IT LATER TODAY, CHARGE NURSE EMILY MADE AWARE
[2021-08-14] MEDS: LEVOFLOXACIN (250MG) 250 MG TABLET PO SCH (13:51)
--- NOTE | 2021-08-14 14:25 | NUR ---
RN NOTES RT FEMORAL HD CATH REMOVED, APPLIED PRESSURE, NO BLEEDING. DRESSING APPLIED.
[2021-08-14 16:00] VITALS: BP 130/64
--- NOTE | 2021-08-14 16:00 | NUR ---
MATRIX INSPECTOR NOTES: FEMORAL CATHETER REMOVED BY EMILY CHARGE NURSE AND ME, PATIENT TOLERATED PROCEDURE WELL, DRESSING APPLIED, NO S/S OF BLEEDING , NO PAIN OR DISCOMFORT, WILL MONITOR
[2021-08-14] MEDS: NEPRO 1,000 ML BOTTLE PEG SCH (19:03)
--- NOTE | 2021-08-14 19:26 | NUR ---
RN OPENING NOTE PATIENT AWAKE IN BED. NO S/S OF DISTRESS; BREATHING ON RM AIR W/O DIFFICULTY. SHAMAR MIDLINE INTACT AND PATENT. NEPRO 65ML/HR. SAFETY MEASURES IN PLACE: BED AT LOWEST POSITION, BED LOCKED, RAILS UP X3, CALL TATE WITHIN REACH. WILL CONTINUE TO MONITOR PATIENT.
--- NOTE | 2021-08-14 19:30 | NUR ---
RN CLOSING NOTE: PATIENT REMAINS IN ROOM IN NO SIGNS OF RESPIRATORY DISTRESS, PATIENT STILL ON ROOM AIR;TOLERATING WELL SATURATING @ >95% SP02. RCW PERMA CATH DRESSING SITE REMAINED INTACT, SECURED AND CLEAN WITH NO SIGNS OF BLEEDING AND INFECTION AT THIS TIME. SAFETY MEASURES IMPLEMENTED, BED IN LOWEST POSITION, LOCKED, SIDE RAILS UP, CALL LIGHT WITHIN REACH. ALL NEEDS AND ORDERS ADDRESSED DURING THE SHIFT. IV ACCESS MAINTAINED INTACT, SECURED AND FLUSHING WELL. FEMORAL AREA POST FEMORAL CATHETER WITHOUT ANY BLEEDING NOTED. ALL DUE MEDS GIVEN ORDERED & SCHEDULED ; PATIENT TOLERATED WELL. PATIENT KEPT CLEAN AND COMFORTABLE WITHIN THE SHIFT. PATIENT ENDORSED TO INCOMING SHIFT RN WITH STABLE VITAL SIGN AND FOR CONTINUITY OF CAR
[2021-08-14 20:00] VITALS: BP 119/56
[2021-08-14] MEDS: DOXAZOSIN MESYLATE (1 MG) 1 MG TABLET GT SCH (21:45)
[2021-08-14] MEDS: ATORVASTATIN 10 MG TABLET GT SCH (21:46)
[2021-08-14] MEDS: *INSULIN REGULAR(HUMULIN R)HUM 100 UNIT/ML VIAL SQ PRN (21:49)
[2021-08-14] MEDS: INSULIN GLARGINE, 100 UNIT/ML CARTRIDGE SQ SCH (23:11)
[2021-08-15] VITALS: BP 119/56
[2021-08-15 06:56] LABS: BASOPHILS % (AUTO) 0.3 % (0.0-2.0); CALCIUM, SERUM 9.4 mg/dL (8.5-10.1); CARBON DIOXIDE 18 mmol/L (21-32); CHLORIDE 98 mmol/L (98-107); CREATININE 4.6 mg/dL (0.6-1.3); EOSINOPHILS % (AUTO) 0.6 % (0.0-6.0); GLUCOSE 222 mg/dL (74-106); HEMATOCRIT 31 % (33-45); HEMOGLOBIN 9.9 g/dL (11.5-14.8); LYMPHOCYTES # (AUTO) 1.2 K/uL (0.8-4.8); LYMPHOCYTES % (AUTO) 14.3 % (20.0-44.0); MEAN CORPUSCULAR HGB CONC 33 g/dl (31.0-36.0); MEAN CORPUSCULAR VOLUME 91 fL (82-100); MONOCYTES # (AUTO) 0.6 K/uL (0.1-1.30); MONOCYTES % (AUTO) 6.7 % (2.0-12.0); NEUTROPHILS # (AUTO) 6.6 K/uL (1.8-8.9); NEUTROPHILS % (AUTO) 78.1 % (43.0-81.0); PLATELET COUNT (AUTO) 146 K/uL (150-450); POTASSIUM 3.8 mmol/L (3.5-5.1); RED BLOOD CELL COUNT(AUTO) 3.36 MIL/uL (4.0-5.2); SODIUM SERUM 131 mmol/L (136-145); WHITE BLOOD COUNT (AUTO) 8.5 K/uL (4.3-11.0)
[2021-08-15 06:58] LABS: UREA NITROGEN, BLOOD 92 mg/dL (7-18)
--- NOTE | 2021-08-15 07:06 | NUR ---
RN OPENING NOTE PATIENT AWAKE IN BED. NO S/S OF DISTRESS; BREATHING ON RM AIR W/O DIFFICULTY. SHAMAR MIDLINE INTACT AND PATENT. NEPRO 65ML/HR STOPPED AT 0600; GTUBE FLUSHED. SAFETY MEASURES IN PLACE: BED AT LOWEST POSITION, BED LOCKED, RAILS UP X3, CALL TATE WITHIN REACH. WILL CONTINUE TO MONITOR PATIENT. Addendum: 08/15/21 at 0707 by CHRIS HARVEY RN WILL ENDORSE TO NEXT SHIFT FOR LEONARDO.
--- NOTE | 2021-08-15 07:30 | NUR ---
MS RN OPENING NOTE RECEIVED PATIENT AWAKE IN BED. NO S/S OF DISTRESS NOTED; ABLE TO MAKE NEEDS KNOWN IN FARO[place]. BREATHING ON ROOM AIR. NO DIFFICULTY NOTED. SHAMAR MIDLINE INTACT AND PATENT. RCW PERMA CATH INTACT. SAFETY MEASURES IN PLACE: BED AT LOWEST POSITION, BED LOCKED, RAILS UP X2, CALL LIGHT AND TABLE WITHIN REACH. WILL CONTINUE TO MONITOR PATIENT.
[2021-08-15 08:00] VITALS: BP 150/63
[2021-08-15] MEDS: BLOOD SUGAR DIAGNOSTIC 1 EACH STRIP IN SCH ×4 (08:14→22:37)
[2021-08-15] MEDS: INSULIN REGULAR, HUMAN 100 UNIT/ML 3 ML VIAL SQ PRN (08:20)
[2021-08-15] MEDS: MUPIROCIN OINT 2% 22 GM TUBE NS SCH ×2 (08:44→20:20)
[2021-08-15] MEDS: LEVOTHYROXINE SODIUM 100 MCG TABLET GT SCH (08:44)
[2021-08-15] MEDS: CLOTRIMAZOLE 1% 15 GM TUBE TP SCH ×2 (08:44→17:54)
[2021-08-15] MEDS: OXYBUTYNIN CHLORIDE ER 5 MG TAB PO SCH (08:44)
[2021-08-15] MEDS: FAMOTIDINE (20 MG) 20 MG TABLET GT SCH (08:44)
[2021-08-15] MEDS: METOPROLOL TARTRATE 25 MG TABLET GT SCH ×2 (09:00→17:38)
[2021-08-15] MEDS: ACETAMINOPHEN 650 MG/20.3 ML UDC GT PRN (14:59)
[2021-08-15 16:00] VITALS: BP 102/73
[2021-08-15] MEDS: NEPRO 1,000 ML BOTTLE PEG SCH (17:42)
[2021-08-15] MEDS: *INSULIN REGULAR(HUMULIN R)HUM 100 UNIT/ML VIAL SQ PRN ×2 (17:43→22:40)
--- NOTE | 2021-08-15 18:38 | NUR ---
MS RN CLOSING NOTE PATIENT AWAKE IN BED. NO S/S OF DISTRESS NOTED; ABLE TO MAKE NEEDS KNOWN IN GREEK LANGUAGE ONLY. BREATHING ON ROOM AIR. NO DIFFICULTY NOTED. SHAMAR MIDLINE INTACT AND PATENT. RCW PERMA CATH INTACT. DIALYSISDONE TODAY , 2000 ML OUTPUT. ALL DUE MEDS AND TREATMENTS GIVEN ORDERED.STARTED GTUBE FEEDING AT 6PM. PLACEMENT CHECKED.NO RESIDUAL NOTED. SAFETY MEASURES IN PLACE: BED AT LOWEST POSITION, BED LOCKED, RAILS UP X2, CALL LIGHT AND TABLE WITHIN REACH. WILL ENDORSE FOR LEONARDO..
[2021-08-15 20:00] VITALS: BP 144/69
--- NOTE | 2021-08-15 22:40 | NUR ---
ACCU CHECK Blood glucose 182mg/dl. Given insulin Regular 3 units co-signed by Vik Borden.
[2021-08-15] MEDS: DOXAZOSIN MESYLATE (1 MG) 1 MG TABLET GT SCH (22:58)
[2021-08-15] MEDS: ATORVASTATIN 10 MG TABLET GT SCH (22:58)
[2021-08-15] MEDS: INSULIN GLARGINE, 100 UNIT/ML CARTRIDGE SQ SCH (23:05)
--- NOTE | 2021-08-15 23:06 | NUR ---
SCHEDULED INSULIN Lantus insulin given co-signed by IAN Worthington.
[2021-08-16 04:00] VITALS: BP 121/71
--- NOTE | 2021-08-16 06:50 | NUR ---
END OF SHIFT REPORT Patient is Alert Oriented x2, cooperative, follow simple command. Maintaining Oxygenation 99% on room air. SHAMAR midline cath intact. On Gtube feeding, tolerated well, minimal gastric residual. Right chest wall Perma cath, dressing clean and dry. On HD as planned. Turned and repositioned, offloading. No episode of Vomiting, denies nausea. Will endorse to oncoming RN.
[2021-08-16 06:53] LABS: BASOPHILS % (AUTO) 0.5 % (0.0-2.0); EOSINOPHILS % (AUTO) 0.9 % (0.0-6.0); HEMATOCRIT 30 % (33-45); HEMOGLOBIN 9.8 g/dL (11.5-14.8); LYMPHOCYTES # (AUTO) 1.2 K/uL (0.8-4.8); LYMPHOCYTES % (AUTO) 23.2 % (20.0-44.0); MEAN CORPUSCULAR HGB CONC 33 g/dl (31.0-36.0); MEAN CORPUSCULAR VOLUME 92 fL (82-100); MONOCYTES # (AUTO) 0.5 K/uL (0.1-1.30); MONOCYTES % (AUTO) 10.4 % (2.0-12.0); NEUTROPHILS # (AUTO) 3.4 K/uL (1.8-8.9); PLATELET COUNT (AUTO) 117 K/uL (150-450); RED BLOOD CELL COUNT(AUTO) 3.24 MIL/uL (4.0-5.2); WHITE BLOOD COUNT (AUTO) 5.2 K/uL (4.3-11.0)
[2021-08-16 07:05] LABS: CALCIUM, SERUM 9.5 mg/dL (8.5-10.1); CARBON DIOXIDE 20 mmol/L (21-32); CHLORIDE 98 mmol/L (98-107); CREATININE 3.4 mg/dL (0.6-1.3); GLUCOSE 248 mg/dL (74-106); POTASSIUM 3.6 mmol/L (3.5-5.1); SODIUM SERUM 130 mmol/L (136-145); UREA NITROGEN, BLOOD 70 mg/dL (7-18)
--- NOTE | 2021-08-16 07:30 | NUR ---
MS RN OPENING NOTE RECEIVED PATIENT AWAKE IN BED. NO S/S OF DISTRESS NOTED; ABLE TO MAKE NEEDS KNOWN IN POLISH. BREATHING ON ROOM AIR. NO DIFFICULTY NOTED. SHAMAR MIDLINE INTACT AND PATENT. RCW PERMA CATH INTACT. SAFETY MEASURES IN PLACE: BED AT LOWEST POSITION, BED LOCKED, RAILS UP X2, CALL LIGHT AND TABLE WITHIN REACH. WILL CONTINUE TO MONITOR PATIENT.
[2021-08-16] MEDS: BLOOD SUGAR DIAGNOSTIC 1 EACH STRIP IN SCH ×4 (08:17→21:37)
[2021-08-16] MEDS: INSULIN REGULAR, HUMAN 100 UNIT/ML 3 ML VIAL SQ PRN ×2 (08:20→11:59)
[2021-08-16] MEDS: MUPIROCIN OINT 2% 22 GM TUBE NS SCH ×2 (09:12→21:22)
[2021-08-16] MEDS: FAMOTIDINE (20 MG) 20 MG TABLET GT SCH (09:13)
[2021-08-16] MEDS: LEVOTHYROXINE SODIUM 100 MCG TABLET GT SCH (09:13)
[2021-08-16] MEDS: CLOTRIMAZOLE 1% 15 GM TUBE TP SCH ×2 (09:13→17:49)
[2021-08-16] MEDS: OXYBUTYNIN CHLORIDE ER 5 MG TAB PO SCH (09:13)
[2021-08-16] MEDS: METOPROLOL TARTRATE 25 MG TABLET GT SCH ×2 (09:14→17:48)
[2021-08-16] MEDS: ACETAMINOPHEN 650 MG/20.3 ML UDC GT PRN ×2 (09:17→21:21)
[2021-08-16 10:18] VITALS: BP 149/64
[2021-08-16] MEDS: VANCOMYCIN POST DIALYSIS 500MG IV PRN ×2 (11:47)
[2021-08-16] MEDS: LEVOFLOXACIN (250MG) 250 MG TABLET PO SCH (14:08)
[2021-08-16 16:38] VITALS: BP 114/60
[2021-08-16] MEDS: NEPRO 1,000 ML BOTTLE PEG SCH (18:13)
--- NOTE | 2021-08-16 19:45 | NUR ---
MS RN OPENING NOTES RECEIVED PATIENT LAYING AWAKE IN BED. A/O X4. PATIENT WITH REGULAR AND UNLABORED BREATHING ON ROOM AIR, TOLERATED WELL. NO SIGNS AND SYMPTOMS OF DISTRESS NOTED AT THIS TIME. NO COMPLAINS OF PAIN OR DISCOMFORT AT THIS TIME. IV ACCESS SHAMAR MIDLINE SL. IV ACCESS PATENT AND INTACT. SAFETY PRECAUTIONS ENFORCED WITH BED LOCKED AND AT LOWEST POSITION. SIDERAILS UP X2. CALL LIGHT WITHIN REACH AT ALL TIMES. WILL CONTINUE TO MONITOR PATIENT.
[2021-08-16 20:00] VITALS: BP 114/89
--- NOTE | 2021-08-16 20:12 | NUR ---
MS RN CLOSING NOTE PATIENT AWAKE IN BED. NO S/S OF DISTRESS NOTED; ABLE TO MAKE NEEDS KNOWN IN POLISH. BREATHING ON ROOM AIR. NO DIFFICULTY NOTED. SHAMAR MIDLINE INTACT AND PATENT. RCW PERMA CATH INTACT. ALL DUE MEDS AND TREATMENTS GIVEN ORDERED. STARTED GTUBE FEEDING AT 1800. WOUND CARE CONSULT ORDERED FOR RIGHT UPPER INTRAJAGULAR PERMACATH REMOVAL SPOT.PATIENT AND FAMILY STATING THERE IS DISCOMFORT AND PAIN AT THE SITE. SAFETY MEASURES IN PLACE: BED AT THE LOWEST POSITION, BED LOCKED, RAILS UP X2, CALL LIGHT AND TABLE WITHIN REACH. WILL ENDORSE FOR LEONARDO.
[2021-08-16] MEDS: ATORVASTATIN 10 MG TABLET GT SCH (21:21)
[2021-08-16] MEDS: DOXAZOSIN MESYLATE (1 MG) 1 MG TABLET GT SCH (21:23)
[2021-08-16] MEDS: INSULIN GLARGINE, 100 UNIT/ML CARTRIDGE SQ SCH (22:23)
[2021-08-16] MEDS: *INSULIN REGULAR(HUMULIN R)HUM 100 UNIT/ML VIAL SQ PRN (22:25)
[2021-08-17] VITALS: BP 114/89
--- NOTE | 2021-08-17 07:09 | NUR ---
MS RN CLOSING NOTES PATIENT STILL LAYING AWAKE IN BED. A/O X2-3. PATIENT WITH REGULAR AND UNLABORED BREATHING ON ROOM AIR, TOLERATED WELL. NO SIGNS AND SYMPTOMS OF DISTRESS NOTED AT THIS TIME. NO COMPLAINS OF PAIN OR DISCOMFORT AT THIS TIME. IV ACCESS SHAMAR MIDLINE SL. IV ACCESS PATENT AND INTACT. SAFETY PRECAUTIONS ENFORCED WITH BED LOCKED AND AT LOWEST POSITION. SIDERAILS UP X2. CALL LIGHT WITHIN REACH AT ALL TIMES. WILL ENDORSE CONTINUITY OF CARE TO DAY SHIFT NURSE.
[2021-08-17 07:13] LABS: BASOPHILS % (AUTO) 0.2 % (0.0-2.0); EOSINOPHILS % (AUTO) 0.5 % (0.0-6.0); HEMATOCRIT 32 % (33-45); HEMOGLOBIN 10.4 g/dL (11.5-14.8); LYMPHOCYTES # (AUTO) 1.2 K/uL (0.8-4.8); LYMPHOCYTES % (AUTO) 12.1 % (20.0-44.0); MEAN CORPUSCULAR HGB CONC 32 g/dl (31.0-36.0); MEAN CORPUSCULAR VOLUME 91 fL (82-100); MONOCYTES # (AUTO) 0.5 K/uL (0.1-1.30); MONOCYTES % (AUTO) 5.2 % (2.0-12.0); NEUTROPHILS # (AUTO) 8.2 K/uL (1.8-8.9); PLATELET COUNT (AUTO) 135 K/uL (150-450); RED BLOOD CELL COUNT(AUTO) 3.51 MIL/uL (4.0-5.2)
--- NOTE | 2021-08-17 07:30 | NUR ---
RN NOTES PT FOUND SEMI FOWLERS DISPLAYING NO S/S OF DISTRESS, PT ENDORSES NO PAIN AND IS BREATHING EVEN AND UNLABORED ON RA. < 5 CC RESIDUAL MEASURED. R UA ML IS PATIENT AND INTACT. KNIGHT CATH BELOW PATIENT DRAINING BY GRAVITY. RN WILL MONITOR AND TREAT THROUGHOUT SHIFT. SAFETY MEASURES IN PLACE, BED LOCKED AND IN LOWEST POSITION, SIDE RAILS UPX2, CALL LIGHT WITHIN REACH, BED ALARM ARMED.
[2021-08-17 07:34] LABS: CALCIUM, SERUM 9.6 mg/dL (8.5-10.1); CARBON DIOXIDE 19 mmol/L (21-32); CHLORIDE 97 mmol/L (98-107); CREATININE 4.3 mg/dL (0.6-1.3); GLUCOSE 210 mg/dL (74-106); SODIUM SERUM 130 mmol/L (136-145)
[2021-08-17 07:47] LABS: UREA NITROGEN, BLOOD 96 mg/dL (7-18)
[2021-08-17] MEDS: BLOOD SUGAR DIAGNOSTIC 1 EACH STRIP IN SCH ×4 (07:59→21:59)
[2021-08-17 08:00] VITALS: BP 140/80
[2021-08-17] MEDS: *INSULIN REGULAR(HUMULIN R)HUM 100 UNIT/ML VIAL SQ PRN ×3 (08:01→22:05)
[2021-08-17] MEDS: FAMOTIDINE (20 MG) 20 MG TABLET GT SCH (09:04)
[2021-08-17] MEDS: MUPIROCIN OINT 2% 22 GM TUBE NS SCH ×2 (09:05→21:35)
[2021-08-17] MEDS: CLOTRIMAZOLE 1% 15 GM TUBE TP SCH ×2 (09:05→17:40)
[2021-08-17] MEDS: LEVOTHYROXINE SODIUM 100 MCG TABLET GT SCH (09:06)
[2021-08-17] MEDS: METOPROLOL TARTRATE 25 MG TABLET GT SCH ×2 (09:06→17:40)
[2021-08-17] MEDS: OXYBUTYNIN CHLORIDE ER 5 MG TAB PO SCH (09:06)
--- NOTE | 2021-08-17 11:00 | NUR ---
WOUND CARE CONSULT: RECEIVED CONSULT FOR RT UPPER JUGULAR CATH REMOVAL SITE. RT NECK/CHEST AREA IS CLEAR, NO DRAINAGE OR ERYTHEMA NOTED. VEIN IS PROMINENT. DEFER TO PMD FOR VEIN APPEARANCE. DISCUSSED WITH HIV NURSE. PT IS INCONTINENT OF LOOSE STOOL. KNIGHT CATH NOTED. SACRAL DEEP TISSUE INJURY (NOTED TO BE PRESENT ON ADMISSION) IS INTACT AT THIS TIME. CONTINUE PROTECTION WITH FOAM DRESSING. DISCUSSED SKIN PROTECTION WITH NURSING STAFF. PT IS ON [place] ISOFLEX LOW AIRLOSS BED. IN AGREEMENT WITH PLAN OF CARE.
[2021-08-17 16:00] VITALS: BP 143/73
--- NOTE | 2021-08-17 19:30 | NUR ---
RN NOTES PT FOUND SEMI FOWLERS DISPLAYING NO S/S OF DISTRESS, PT ENDORSES NO PAIN AND IS BREATHING EVEN AND UNLABORED ON RA. < 5 CC RESIDUAL MEASURED VIA PEG. R UA ML IS PATIENT AND INTACT. KNIGHT CATH, AFTER BEING REPLACED, IS BELOW PATIENT DRAINING BY GRAVITY. SBAR AND REPORT GIVEN TO ZINC ETCHER RN, ALL QUESTIONS ANSWERED. SAFETY MEASURES IN PLACE, BED LOCKED AND IN LOWEST POSITION, SIDE RAILS UPX2, CALL LIGHT WITHIN REACH, BED ALARM ARMED. PT ENDORSED IN STABLE CONDITION FOR LEONARDO.
[2021-08-17] MEDS: NEPRO 1,000 ML BOTTLE PEG SCH (19:36)
--- NOTE | 2021-08-17 19:40 | NUR ---
RN OPENING NOTES RECEIVED PATIENT IN BED, AWAKE, A/O X2-3 AND VERBALLY RESPONSIVE. TAJIK SPEAKING. ON ROOM AIR AND PT TOLERATED WELL. BREATHING EVEN AND UNLABORED. NO SOB NOTED. IV ACCESS ON SHAMAR ML #18 AND INTACT AND PATENT. RIGHT UPPER CHEST WALL HD CATH INTACT AND PATENT. NO BLEEDING NOTED. NO C/O PAIN OR DISCOMFORT. NO ACUTE DISTRESS. GTUBE NEPHRO AT 65CC/HR. KNIGHT CATH INTACT WITH YELLOWISH/CLEAR URINE. ALL SAFETY MEASURES IN PLACE. HOB ELEVATED. BED IN LOWEST POSITION AND LOCKED. SIDE RIALS UP X2. PLACE CALL LIGHT WITH IN REACH. WILL CONTINUE TO MONITOR
[2021-08-17 20:00] VITALS: BP 133/64
[2021-08-17] MEDS: ATORVASTATIN 10 MG TABLET GT SCH (21:35)
[2021-08-17] MEDS: DOXAZOSIN MESYLATE (1 MG) 1 MG TABLET GT SCH (21:36)
[2021-08-17] MEDS: INSULIN GLARGINE, 100 UNIT/ML CARTRIDGE SQ SCH (22:02)
--- NOTE | 2021-08-17 22:10 | NUR ---
RN NOTES: BLOOD SUGAR 203. 9 UNITS OF LANTUS AND 4 UNITS OF REGULAR INSULIN GIVEN. NO S/S OF HYPER/HYPOGLYCEMIA. WILL CONTINUE TO MONITOR
[2021-08-18 04:00] VITALS: BP 122/62
--- NOTE | 2021-08-18 06:40 | NUR ---
RN CLOSING NOTES PATIENT IN BED SLEEPING BUT EASILY AROUSABLE, AWAKE, A/O X2-3 AND VERBALLY RESPONSIVE. GREENLANDIC SPEAKING. ON ROOM AIR, O2 96% AND PT TOLERATED WELL. BREATHING EVEN AND UNLABORED. NO SOB NOTED. IV ACCESS ON SHAMRA ML #18 AND INTACT AND PATENT. RIGHT UPPER CHEST WALL HD CATH INTACT AND PATENT. NO BLEEDING NOTED. NO C/O PAIN OR DISCOMFORT. NO ACUTE DISTRESS. GTUBE NEPHRO AT 65CC/HR AND WELL TOLERATED WELL. KNIGHT CATH INTACT WITH YELLOWISH/CLEAR URINE. ALL DUE MEDS GIVEN ORDERED. ALL SAFETY MEASURES IN PLACE. HOB ELEVATED. BED IN LOWEST POSITION AND LOCKED. SIDE RIALS UP X2. PLACE CALL LIGHT WITH IN REACH. WILL ENDORSE TO MORNING SHIFT NURSE.
--- NOTE | 2021-08-18 07:30 | NUR ---
RN OPENING NOTES RECEIVED PATIENT ASLEEP IN BED, ALERT VERBALLY RESPONSIVE. NOT IN DISTRESS, NO COMPLAINTS OF PAIN NOTED. RIGHT CHEST PERMACATH IN PLACE, NO BLEEDING NOTED. SHAMAR MIDLINE PATENT AND INTACT. GT INTACT. TF NEPRO TO BE RESUMED AT 1800. PATIENT ON PUREED DIET. KNIGHT CATHETER PATENT AND INTACT DRAINING TO YELLOW COLORED URINE. BED TO LOWEST POSITION AND LOCKED. CALL LIGHT WITHIN REACH.
[2021-08-18 07:40] LABS: BASOPHILS % (AUTO) 0.4 % (0.0-2.0); EOSINOPHILS % (AUTO) 0.8 % (0.0-6.0); HEMATOCRIT 29 % (33-45); HEMOGLOBIN 9.6 g/dL (11.5-14.8); LYMPHOCYTES # (AUTO) 1.3 K/uL (0.8-4.8); LYMPHOCYTES % (AUTO) 18.4 % (20.0-44.0); MEAN CORPUSCULAR HGB CONC 33 g/dl (31.0-36.0); MEAN CORPUSCULAR VOLUME 91 fL (82-100); MONOCYTES # (AUTO) 0.5 K/uL (0.1-1.30); MONOCYTES % (AUTO) 6.8 % (2.0-12.0); NEUTROPHILS # (AUTO) 5.3 K/uL (1.8-8.9); NEUTROPHILS % (AUTO) 73.6 % (43.0-81.0); PLATELET COUNT (AUTO) 149 K/uL (150-450); RED BLOOD CELL COUNT(AUTO) 3.24 MIL/uL (4.0-5.2); WHITE BLOOD COUNT (AUTO) 7.2 K/uL (4.3-11.0)
[2021-08-18 07:45] LABS: CALCIUM, SERUM 9.5 mg/dL (8.5-10.1); CARBON DIOXIDE 18 mmol/L (21-32); CHLORIDE 98 mmol/L (98-107); CREATININE 4.2 mg/dL (0.6-1.3); GLUCOSE 203 mg/dL (74-106); POTASSIUM 3.8 mmol/L (3.5-5.1); SODIUM SERUM 130 mmol/L (136-145); UREA NITROGEN, BLOOD 116 mg/dL (7-18)
[2021-08-18] MEDS: FAMOTIDINE (20 MG) 20 MG TABLET GT SCH (08:58)
[2021-08-18] MEDS: OXYBUTYNIN CHLORIDE ER 5 MG TAB PO SCH (08:58)
[2021-08-18] MEDS: BLOOD SUGAR DIAGNOSTIC 1 EACH STRIP IN SCH ×4 (08:59→21:21)
[2021-08-18] MEDS: METOPROLOL TARTRATE 25 MG TABLET GT SCH ×2 (08:59→16:15)
[2021-08-18] MEDS: LEVOTHYROXINE SODIUM 100 MCG TABLET GT SCH (08:59)
[2021-08-18] MEDS: CLOTRIMAZOLE 1% 15 GM TUBE TP SCH ×2 (08:59→16:14)
[2021-08-18] MEDS: *INSULIN REGULAR(HUMULIN R)HUM 100 UNIT/ML VIAL SQ PRN ×3 (09:02→21:57)
[2021-08-18] MEDS: MUPIROCIN OINT 2% 22 GM TUBE NS SCH ×2 (09:03→21:04)
[2021-08-18] MEDS: INSULIN REGULAR, HUMAN 100 UNIT/ML 3 ML VIAL SQ PRN (11:50)
[2021-08-18] MEDS ORDERED: *INS REG SQ (12:14)
[2021-08-18] MEDS ORDERED: INSU100V28 SQ (12:14)
[2021-08-18] MEDS ORDERED: Nepro PEG (12:14)
[2021-08-18] MEDS ORDERED: INSU100I30 SQ (12:29)
--- NOTE | 2021-08-18 12:49 | NUR ---
RN NOTES PER CHARGE NURSE BLAINE PATIENT FOR DC TO HOME TOMORROW AND FAMILY REQUESTING TRANSPORTATION. CALLED CASE MANAGEMENT EXT [phone] MADE AWARE OF THE NEED FOR TRANSPORTATION PER REQUEST UPON DC TOMORROW.
--- NOTE | 2021-08-18 13:45 | NUR ---
RN NOTES HD DONE WITH 1.2 OUTPUT PER DIALYSIS NURSE. PT V/S STABLE POST HD.
[2021-08-18] MEDS: NEPRO 1,000 ML BOTTLE PEG SCH (17:46)
--- NOTE | 2021-08-18 18:35 | NUR ---
RN CLOSING NOTES PATIENT AWAKE IN BED, VERBALLY RESPONSIVE WITH FAMILY AT BEDSIDE. NOT IN DISTRESS NO COMPLAINTS OF PAIN NOTED. PATIENT HAD POOR APPETITE WITH PUREED FOOD. GT PATENT AND INTACT WITH NO RESIDUAL, TF TURNED ON AT 1800 NEPRO 1.8 @ 65CCHR AND TO BE TURNED OFF AT 0600. RIGHT CHEST PERMACATH IN PLACE NO BLEEDING NOTED. PATIENT HAD HD TODAY WITH 1.2L OUTPUT. PATIENT HAD BM X 2. PATIENT FOR DISCHARGE TOMORROW, CASE MANAGEMENT AWARE OF FAMILY'S REQUEST FOR TRANSPORTATION. BED TO LOWEST POSITION AND LOCKED. KEPT HOB ELEVATED. CALL LIGHT WITHIN REACH. WILL ENDORSE TO NIGHT NURSE ON DUTY.
--- NOTE | 2021-08-18 19:20 | NUR ---
RN NOTE RECEIVED PATIENT IN BED RESTING ALERT ORIENTED X2 ON ROOM AIR O2:95% IV SITE IS ON RIGHT UPPER ARM INTACT PATENT AND PERM-CATH ON RIGHT CHEST WALL.ON G-TUBE NEPRO 65CC/HR FOR 12 HOURS,KNIGHT CATH IN PLACE URINE DRAINING YELLOW BY GRAVITY ,SAFETY MEASURE IMPLEMENT BED IN LOW POSITION AND LOCKED, BED ALARM IS ON HEAD OF THE BED ELEVATED,CALL LIGHT WITHIN REACH CONTINUE TO MONITOR.
[2021-08-18 20:00] VITALS: BP 118/60
[2021-08-18] MEDS: ATORVASTATIN 10 MG TABLET GT SCH (21:13)
[2021-08-18] MEDS: DOXAZOSIN MESYLATE (1 MG) 1 MG TABLET GT SCH (21:13)
[2021-08-18] MEDS: INSULIN GLARGINE, 100 UNIT/ML CARTRIDGE SQ SCH (21:53)
[2021-08-19 04:00] VITALS: BP 121/62
--- NOTE | 2021-08-19 06:31 | NUR ---
RN NOTE PATIENT REMAINS ON ALERT ORIENTED X2-3 ON ROOM AIR O2:96% NO SOB NOT ACUTE DISTRESS NOTED,G-TUBE OFF AT 0600 AM.KEPT CLEAN AND DRY ALL THE TIME,KEPT COMFORTABLE ALL NEEDS MET ALL DUE MEDS GIVEN MD ORDERED,TURNED AND REPOSITIONED EVERY 2 HOURS ALL NEEDS MET ENDORSE NEXT COMING SHIFT FOR CONTINUATION OF CARE
--- NOTE | 2021-08-19 07:36 | NUR ---
rn opening notes: RECEIVED PATIENT ON BED, AWAKE, ALERT X 2-3 AND VERBALLY RESPONSIVE. ON ROOM AIR. RESPIRATORY EVEN AND UNLABORED, NO SOB NOTED. REMAIN AFEBRILE. NO S/S OF DISTRESS NOTED. NOTED WITH SHAMAR MID LINE , INTACT PATENT, FLUSHED WITH NS. RIGHT CHEST PERMA CATH IN PLACE , NO S/OF INFECTION OR BLEEDING.PER NIGHT RN FEEDING WAS RUNNING FROM 6PM TO 6 AM TOLERATED WELL. SAFETY MEASURE PROVIDED. BED IN LOWEST POSITION, LOCKED. BED ALARM ARMED. CONTINUE TO MONITOR.
[2021-08-19] MEDS: BLOOD SUGAR DIAGNOSTIC 1 EACH STRIP IN SCH ×3 (07:57→17:52)
[2021-08-19] MEDS: METOPROLOL TARTRATE 25 MG TABLET GT SCH ×2 (08:38→17:35)
[2021-08-19] MEDS: FAMOTIDINE (20 MG) 20 MG TABLET GT SCH (08:38)
[2021-08-19] MEDS: OXYBUTYNIN CHLORIDE ER 5 MG TAB PO SCH (08:38)
[2021-08-19] MEDS: LEVOTHYROXINE SODIUM 100 MCG TABLET GT SCH (08:38)
[2021-08-19] MEDS: MUPIROCIN OINT 2% 22 GM TUBE NS SCH (09:06)
[2021-08-19] MEDS: CLOTRIMAZOLE 1% 15 GM TUBE TP SCH ×2 (09:07→17:36)
[2021-08-19 12:00] VITALS: BP 131/62
--- NOTE | 2021-08-19 15:00 | NUR ---
RN NOTES: CALLED CASE MANAGE Drake WHAT TIME AMBULANCE WILL COME TO CHEF TEACHER PATIENT SHE SAID SHE IS FOLLOWING UP WITH THE [facility] OFFICER WHO IS ARRANGING TRANSPORTATION, SHE CALLED BACK THE AMBULACE WILL BE [facility] WILL ARRIVE AROUND 5 PM TO CHEF TEACHER THE PATIENT, DAUGHTER AT BEDSIDE MADE AWARE,
--- NOTE | 2021-08-19 17:30 | NUR ---
RN NOTES: CALLED [facility] TO FOLLOW UP WHAT TIME THEY WILL EQUIPMENT VALIDATION ENGINEER THE PATIENT THEY SAID THEY ARE BUSY THEY WILL COME AROUND 7 PM , DAUGHTER AT BEDSIDE MADE AWARE, DAUGHTER RECEIVED ALL DISCHARGE INSTRUCTION AND MEDICATION LIST
--- NOTE | 2021-08-19 19:00 | NUR ---
RN NOTES: PATIENT STILL IN BED, AWAITING FOR AMBULANCE, NO S/S OF PAIN OR DISCOMFORT, REPORT GIVEN TO TRAVELING PHLEBOTOMIST RN THAT AMBULANCE WILL COME ANY MINUTE TO PLANT OPERATOR THE PATIENT
--- NOTE | 2021-08-19 19:10 | NUR ---
RN NOTES RECEIVED REPORT FROM MORNING NURSE. PATIENT A/O X3 ABLE TO MAKE NEEDS KNOWN. WITH RCW PERMA CATH INTACT NO BLEEDING NOTED. ON ROOM AIR SATING 96%. WITH GT PATENT FLUSHES WELL. VITAL SIGNS TAKEN AND RECORDED AFEBRILE. FOR D/C TODAY. WILL WAIT FOR THE AMBULANCE.
[2021-08-19 20:00] VITALS: BP 127/60
--- NOTE | 2021-08-19 20:33 | NUR ---
RN NOTES EMT ARRIVED. ALL PAPER WORKS WITH RP AT BEDSIDE. SAFELY TRANSFER TO [facility]. HOME MEDS AND DISCHARGE TEACHING GIVEN TO PATIENT AND RP. LEFT HOSPITAL PATIENT IS STABLE NO DISTRESS.
== END 2021-08-19 22:08 | disposition home health service (06) | DRG 871 ==
LOC: ER 18:34 → TRANSITION 08-02 02:50 → MEDSG1 08-02 08:21 → TELE1 08-02 09:05 → MEDSG1 08-10 09:10
PROVIDERS: ADMIT Registered Nurse; ATTEND Nurse Practitioner Acute Care
PROC: 05H533Z Insertion of Infusion Device into Right Subclavian Vein, Percutaneous Approach (ICD-10-PCS; principal; 2021-08-02)
PROC: B546ZZA Ultrasonography of Right Subclavian Vein, Guidance (ICD-10-PCS; 2021-08-02)
PROC: 5A1D70Z Performance of Urinary Filtration, Intermittent, Less than 6 Hours Per Day (ICD-10-PCS; 2021-08-03)
PROC: 0JH63XZ Insertion of Tunneled Vascular Access Device into Chest Subcutaneous Tissue and Fascia, Percutaneous Approach (ICD-10-PCS; 2021-08-13)
PROC: 02HV33Z Insertion of Infusion Device into Superior Vena Cava, Percutaneous Approach (ICD-10-PCS; 2021-08-13)
PROC: B518YZA Fluoroscopy of Superior Vena Cava using Other Contrast, Guidance (ICD-10-PCS; 2021-08-13)
DX: A41.9 Sepsis, unspecified organism (principal); I21.A1 Myocardial infarction type 2; N18.6 End stage renal disease; J15.9 Unspecified bacterial pneumonia; N39.0 Urinary tract infection, site not specified; E87.1 Hypo-osmolality and hyponatremia; I12.0 Hypertensive chronic kidney disease with stage 5 chronic kidney disease or end stage renal disease; E86.0 Dehydration; Z99.2 Dependence on renal dialysis; Z20.822 Contact with and (suspected) exposure to COVID-19; E11.65 Type 2 diabetes mellitus with hyperglycemia; E78.5 Hyperlipidemia, unspecified; Z93.1 Gastrostomy status; Z79.4 Long term (current) use of insulin; R13.10 Dysphagia, unspecified; Z87.442 Personal history of urinary calculi; D64.9 Anemia, unspecified; E11.22 Type 2 diabetes mellitus with diabetic chronic kidney disease; B96.89 Other specified bacterial agents as the cause of diseases classified elsewhere; Z86.73 Personal history of transient ischemic attack (TIA), and cerebral infarction without residual deficits; Z22.322 Carrier or suspected carrier of Methicillin resistant Staphylococcus aureus; Z96.0 Presence of urogenital implants; E87.79 Other fluid overload
CPT/HCPCS: 36415; 71045-TC; 74018; 76000-TC; 80048-TC; 80061-TC; 80076-TC; 80202-TC; 81001; 82962-TC; 83540-TC; 83605-TC; 83690-TC; 83735-TC; 84100-TC; 84484-TC; 85025-TC; 85730-TC; 86706; 87040-TC; 87070-TC; 87081-TC; 87086-TC; 87186-TC; 87340; 90935-TC; 92526; 92611-TC; 93307-TC; A4216; A6403; C1750; C9803; G0378; J0360; J0692; J0696; J0885; J1644; J1815; J2250; J2405; J2543; J2704; J3010; J3370; J3490; J7030; J7050; J7060; P9047; Q9967

== ENCOUNTER 2025-03-13 17:27 | Inpatient (IN) | payer BC, OTHER ==
[~2025-03-13] VITALS: Ht 152.4 cm; Wt 66.7 kg
[~2025-03-13 17:27] MED LIST: *INS REG SQ; ATOR10TA GT; DOXA1TAB4 GT; FAMO20TA8 GT; INSU100I30 SQ; INSU100V28 SQ; LEVO100T9 GT; METO25TA6 GT; OXYB-58 GT
[2025-03-13] MEDS: CEFEPIME 1 GM in IV D5W 50 ML IV ONE (18:00)
[2025-03-13] MEDS ORDERED: ACETAMINOPHEN ES 500 MG TABLET ONE (18:16)
[2025-03-13 18:18] LABS: PLATELET COUNT (AUTO) 111 K/uL (150-450); RED BLOOD CELL COUNT(AUTO) 4.64 MIL/uL (4.0-5.2); RED CELL DISTRIBUTION WIDTH 15.3 % (11.5-15.0); WHITE BLOOD COUNT (AUTO) 4.9 K/uL (4.3-11.0)
[2025-03-13 18:25] LABS: CALCIUM, SERUM 9.1 mg/dL (8.5-10.1); CREATININE 2.2 mg/dL (0.6-1.3); SODIUM SERUM 135.0 mmol/L (136-145); UREA NITROGEN, BLOOD 37.0 mg/dL (7-18)
[2025-03-13] MEDS: ACETAMINOPHEN ES 500 MG TABLET PO ONE (18:28)
[2025-03-13 18:30] LABS: ASPARTATE AMINOTRANSFERASE 33.0 U/L (15-37); TOTAL PROTEIN, SERUM 8.5 g/dL (6.4-8.2)
[2025-03-13 18:32] LABS: INR 1.03 (0.91-1.10)
[2025-03-13 18:33] LABS: LACTIC ACID 1.3 mmol/L (0.4-2.0)
[2025-03-13] MEDS: IV NS 0.9% 500 ML BAG IV ONE (19:59)
[2025-03-13] MEDS ORDERED: ONDANSETRON HCL/PF 4 MG/2 ML VIAL IVP PRN (20:30)
[2025-03-13] MEDS ORDERED: DEXTROSE 50%-WATER 50 ML DISP.SYRIN IV PRN (20:30)
[2025-03-13] MEDS ORDERED: MAGNESIUM HYDROXIDE 30 ML UDC PO PRN (20:30)
[2025-03-13] MEDS ORDERED: MAG HYDROX/AL HYDROX/SIMETH 30 ML UDC PO PRN (20:30)
[2025-03-13] MEDS ORDERED: Z GUARD REMEDY 4 OZ OINT TP PRN (20:30)
[2025-03-13] MEDS: DOXAZOSIN MESYLATE (1 MG) 1 MG TABLET GT SCH (23:39)
[2025-03-13] MEDS: ATORVASTATIN 10 MG TABLET GT SCH (23:40)
[2025-03-13] MEDS: INSULIN REGULAR, HUMAN 100 UNIT/ML 3 ML VIAL SQ PRN (23:42)
[2025-03-13] MEDS: BLOOD SUGAR DIAGNOSTIC 1 EACH STRIP IN SCH (23:42)
[2025-03-13] MEDS: INSULIN GLARGINE, 100 UNIT/ML CARTRIDGE SQ SCH (23:45)
[2025-03-14] VITALS (13 sets, daily range): BP systolic 101–155; BP diastolic 44–73; TEMP 98.1–101.5; O2SAT 94–99
[2025-03-14] MEDS: OSELTAMIVIR PHOSPHATE 30 MG CAPSULE PO SCH
[2025-03-14] MEDS: OSELTAMIVIR PHOSPHATE 75 MG CAPSULE PO ONE (01:06)
[2025-03-14] MEDS: ALBUTEROL FS 2.5 MG/3 ML VIAL.NEB NEB SCH (03:48)
[2025-03-14 07:42] LABS: PLATELET COUNT (AUTO) 99 K/uL (150-450); RED BLOOD CELL COUNT(AUTO) 4.08 MIL/uL (4.0-5.2); RED CELL DISTRIBUTION WIDTH 15.4 % (11.5-15.0); WHITE BLOOD COUNT (AUTO) 3.7 K/uL (4.3-11.0)
[2025-03-14 08:11] LABS: ASPARTATE AMINOTRANSFERASE 30.0 U/L (15-37); CALCIUM, SERUM 8.2 mg/dL (8.5-10.1); CREATININE 2.1 mg/dL (0.6-1.3); PHOSPHORUS 4.7 mg/dL (2.5-4.9); SODIUM SERUM 136.0 mmol/L (136-145); TOTAL PROTEIN, SERUM 7.3 g/dL (6.4-8.2); UREA NITROGEN, BLOOD 43.0 mg/dL (7-18)
[2025-03-14] MEDS: IPRATROPIUM NEB FS 0.5 MG/2.5 ML AMPUL.NEB NEB SCH (08:25)
[2025-03-14] MEDS: FAMOTIDINE (20 MG) 20 MG TABLET GT SCH (09:24)
[2025-03-14] MEDS: LEVOTHYROXINE SODIUM 100 MCG TABLET GT SCH (09:24)
[2025-03-14] MEDS: METOPROLOL TARTRATE 25 MG TABLET GT SCH (09:26)
[2025-03-14 09:39] LABS: PLATELET ESTIMATE DECREASED
[2025-03-14 09:41] LABS: NEUTROPHILS % (MANUAL) 71 (42-76)
[2025-03-14 09:42] LABS: LYMPHOCYTES % (MANUAL) 18 % (16-48); MONOCYTES % (MANUAL) 11 % (0-11.0)
[2025-03-14] MEDS: CEFEPIME 1 GM in IV D5W 50 ML IV SCH (18:07)
[2025-03-14] MEDS: ACETAMINOPHEN 325 MG TABLET PO PRN (19:56)
[2025-03-15] VITALS (13 sets, daily range): BP systolic 103–122; BP diastolic 45–63; TEMP 98–98.9; O2SAT 93–99
[2025-03-15] MEDS: OSELTAMIVIR PHOSPHATE SUSP 6 MG/ML BOTTLE PO SCH (01:13)
[2025-03-15 06:14] LABS: PLATELET COUNT (AUTO) 92 K/uL (150-450); RED BLOOD CELL COUNT(AUTO) 4.07 MIL/uL (4.0-5.2); RED CELL DISTRIBUTION WIDTH 15.1 % (11.5-15.0); WHITE BLOOD COUNT (AUTO) 3.6 K/uL (4.3-11.0)
[2025-03-15 06:28] LABS: CALCIUM, SERUM 8.8 mg/dL (8.5-10.1); CREATININE 2.4 mg/dL (0.6-1.3); PHOSPHORUS 4.1 mg/dL (2.5-4.9); SODIUM SERUM 135.0 mmol/L (136-145); UREA NITROGEN, BLOOD 32.0 mg/dL (7-18)
[2025-03-15 10:58] LABS: LYMPHOCYTES % (MANUAL) 16 % (16-48); MONOCYTES % (MANUAL) 10 % (0-11.0); NEUTROPHILS % (MANUAL) 74 (42-76); PLATELET ESTIMATE DECREASED
[2025-03-16] VITALS (10 sets, daily range): BP systolic 114–144; BP diastolic 67–99; TEMP 97.7–99.1; O2SAT 95–100
[2025-03-16] MEDS: OSELTAMIVIR PHOSPHATE SUSP 6 MG/ML BOTTLE PO SCH (08:53)
[2025-03-16 11:52] LABS: PLATELET COUNT (AUTO) 77 K/uL (150-450); RED BLOOD CELL COUNT(AUTO) 4.28 MIL/uL (4.0-5.2); RED CELL DISTRIBUTION WIDTH 15.4 % (11.5-15.0); WHITE BLOOD COUNT (AUTO) 3.4 K/uL (4.3-11.0)
[2025-03-16 11:58] LABS: CALCIUM, SERUM 8.7 mg/dL (8.5-10.1); CREATININE 2.4 mg/dL (0.6-1.3); SODIUM SERUM 132.0 mmol/L (136-145); UREA NITROGEN, BLOOD 23.0 mg/dL (7-18)
[2025-03-16 13:56] LABS: LYMPHOCYTES % (MANUAL) 23 % (16-48); MONOCYTES % (MANUAL) 2 % (0-11.0); NEUTROPHILS % (MANUAL) 75 (42-76); PLATELET ESTIMATE DECREASED
[2025-03-17] VITALS (12 sets, daily range): BP systolic 108–143; BP diastolic 58–64; TEMP 97.9–98.9; O2SAT 94–100
[2025-03-17 07:37] LABS: PLATELET COUNT (AUTO) 83 K/uL (150-450); RED BLOOD CELL COUNT(AUTO) 4.07 MIL/uL (4.0-5.2); RED CELL DISTRIBUTION WIDTH 14.8 % (11.5-15.0); WHITE BLOOD COUNT (AUTO) 2.8 K/uL (4.3-11.0)
[2025-03-17 09:08] LABS: CALCIUM, SERUM 8.6 mg/dL (8.5-10.1); CREATININE 3.0 mg/dL (0.6-1.3); PHOSPHORUS 3.0 mg/dL (2.5-4.9); SODIUM SERUM 137.0 mmol/L (136-145); UREA NITROGEN, BLOOD 30.0 mg/dL (7-18)
[2025-03-17 11:36] LABS: EOSINOPHILS % (MANUAL) 2 % (0-4); LYMPHOCYTES % (MANUAL) 15 % (16-48); MONOCYTES % (MANUAL) 4 % (0-11.0); NEUTROPHILS % (MANUAL) 79 (42-76); PLATELET ESTIMATE DECREASED
[2025-03-18] VITALS (10 sets, daily range): BP systolic 115–128; BP diastolic 58–71; TEMP 97.7–98.4; O2SAT 94–100
[2025-03-18] MEDS: ALTEPLASE CATHFLO 2 MG/VIAL XX ONE (17:26)
== END 2025-03-18 21:07 | disposition home or self-care (01) | DRG 871 ==
LOC: ER 17:36 → TELE1 20:21 → MEDSG1 03-15 10:34
PROVIDERS: ADMIT Nurse Practitioner Acute Care; ATTEND Nurse Practitioner Acute Care
PROC: 5A1D70Z Performance of Urinary Filtration, Intermittent, Less than 6 Hours Per Day (ICD-10-PCS; principal; 2025-03-14)
DX: A41.9 Sepsis, unspecified organism (principal); J96.01 Acute respiratory failure with hypoxia; N18.6 End stage renal disease; I12.0 Hypertensive chronic kidney disease with stage 5 chronic kidney disease or end stage renal disease; I16.0 Hypertensive urgency; E11.22 Type 2 diabetes mellitus with diabetic chronic kidney disease; E03.9 Hypothyroidism, unspecified; D64.9 Anemia, unspecified; E78.5 Hyperlipidemia, unspecified; Z99.2 Dependence on renal dialysis; J10.1 Influenza due to other identified influenza virus with other respiratory manifestations; E87.70 Fluid overload, unspecified; Z79.4 Long term (current) use of insulin; Z86.73 Personal history of transient ischemic attack (TIA), and cerebral infarction without residual deficits; Z93.1 Gastrostomy status; R53.1 Weakness; Z20.822 Contact with and (suspected) exposure to COVID-19
CPT/HCPCS: 36415; 71045-TC; 80048-TC; 80053-TC; 80076-TC; 82962-TC; 83605-TC; 83735-TC; 84100-TC; 85025-TC; 85027-TC; 85730-TC; 87040-TC; 90935-TC; 94760-TC; 94762-TC; 94799-TC; A4223; G0378; J0692; J1815; J2405; J2997; J7030; J7050; J7060